=== PATIENT | female | born 1945 | race Caucasian/White ===

== ENCOUNTER 2019-12-06 13:38 | Emergency (ER) | payer MEDICARE, SELFPAY ==
--- NOTE | ~2019-12-06 | XR_ITS ---
EXAMINATION: XR chest 2V EXAM DATE: 12/06/2019 14:05 INDICATION: Cough and shortness of breath. TECHNIQUE: Frontal and lateral projections of the chest obtained and reviewed. There is no prior velia dy for comparison. FINDINGS: Chronic hyperinflation. No confluent consolidation, pneumothorax or pleural effusion suspe cted. Cardiomediastinal silhouette is normal. There is aortic arterial sclerosis. The bones are osteo penic. There are bony degenerative changes. Multiple thoracic chronic appearing compression fracture s. IMPRESSION: 1. Chronic hyperinflation. Reviewed, dictated and finalized at location B. ECTIONERY MAKER IMPRESSION: 1. Chronic hyperinflation.
--- NOTE | 2019-12-06 13:47 | ED.URI ---
HPI - URI/Sore Throat General Chief Complaint: Upper Respiratory Infection Stated Complaint: cough/sore throat/fever/SOB Time Seen by Provider: 12/06/19 14:10 Source: patient, family and RN notes reviewed Mode of arrival: ambulatory Limitations: no limitations History of Present Illness HPI Narrative: A 74 y/o female--who is former smoker and nondrinker-- c/o intermittent but worsening green, productive cough for the past couple months. She states that she has had associated SOB, nasal congestion, wheezes, back pain. She reports that she has had these symptoms for a couple months but that over the past week it has gotten more severe. She notes that she has been taking Aleve for her pain but denies it alleviating it. She also notes that she hasn't seen a doctor in a couple of years. She denies any calf pain/ edema, CP, sore throat, and all other medical complaints at this time. MD elicited complaint: cough (green productive) Onset (ago): month(s) (a couple but worse over the past week) Consistency: intermittent and progressively worsening Description of mucous: green Relieving factors: nothing Associated symptoms: nasal congestion, shortness of breath and other (wheezes, back pain, and RUE numbness) Treatments prior to arrival: other (Aleve) Related Data Allergies Allergy/AdvReac Type Severity Reaction Status Date / Time No Known Allergies Allergy Verified 12/06/19 13:58 Review of Systems Review of Systems: Narrative: General/Constitutional: No weight loss,fever Eyes: N0: Redness,discharge Ears/Nose/Throat: No: Epistaxis,ear discharge, sore throat. Reports nasal congestion. Respiratory: Denies: Hemoptysis. Reports green productive cough, SOB, and wheezes. Cardio: Denies CP or edema. Gastrointestinal: No Vomiting, Bleeding-rectal Skin: No Lumps, eruption Musculoskeletal: Reports back pain. Neurologic: No Focal Weakness,Sz. Reports RUE numbness. Hematologic: Denies: Petechiae/Purpura Psychiatric: No: Suicida ideationl All Other Systems: Reviewed and Negative [facility] Past Medical History Medical History (Updated 12/06/19 @ 14:48 by Zander Barr MD) Medical history unknown Surgical History Surgical History (Updated 12/06/19 @ 14:38 by Chuck Griffin) Surgical history unknown Social History Social History (Updated 12/06/19 @ 14:39 by Chuck Griffin) Smoking status: Never smoker Exam Narrative: Exam Narrative: General Appearance: Aged appearing, Well nourished EYE: PERRLA, Conjunctiva clear Ears: Auditory canal normal, TM normal Nose: Rhinorrhea, Mucousal erythema Mouth/Throat: MM moist, Uvula midline, Pharyngeal erythema Neck: Supple, No adenopathy Respiratory:Kyphotic, No distress,BS equal decreased at bases, increased AP rafael, CTA with rare wheeze] Cardiovascular: RRR, No JVD Musculoskeletal: Non tender, Normal strength Skin: Warm, Dry Neurological: A&O x3, CN II-XII intact Psychiatric: Normal mood, Normal affect Course Vital Signs Vital signs: Vital Signs Temperature 97.6 F 12/06/19 13:53 Pulse Rate 89 12/06/19 13:53 Respiratory Rate 22 H 12/06/19 13:53 Blood Pressure 222/88 H 12/06/19 13:53 Pulse Oximetry 97 12/06/19 13:53 Temperature 97.6 F 12/06/19 13:53 Pulse Rate 89 12/06/19 13:53 Respiratory Rate 22 H 12/06/19 13:53 Blood Pressure 160/100 H 12/06/19 14:25 Pulse Oximetry 97 12/06/19 13:53 MDM - URI/Sore Throat Lab Data Labs: Influenza A Screen Negative Reference Range: Negative Influenza B Screen Negative Reference Range: Negative Imaging Data Radiologist's impression: ITS Impressions Chest X-Ray 12/06/19 14:07 IMPRESSION: 1. Chronic hyperinflation. ECG Data EKG #1: ECG completion date: 12/06/19 ECG completion time: 14:17 EKG Interpretation: normal rate (88), sinus rhythm, RBBB and other (possible lt artrial enlargement and indeterminate axis) Di
[2019-12-06 13:53] VITALS: BP 222/88; PULSE 89; RESP 22; TEMP 36.4; O2SAT 97
--- NOTE | 2019-12-06 14:19 | ECG_ITS ---
Measurements Intervals [place] Rate: 88 P: 55 MT: 170 QRS: -14 QRSD: 126 T: 31 QT: 372 QTc: 452 Interpretive Statements SINUS RHYTHM POSSIBLE LEFT ATRIAL ENLARGEMENT RIGHT BUNDLE BRANCH BLOCK BASELINE ARTIFACT- I, II, III, AVR, AVL, AVF ABNORMAL ECG Electronically Signed On 12-06-2019 15:13:00 DELI WORKER by Deandre Campbell D.O.
[2019-12-06 14:25] VITALS: BP 160/100
== END 2019-12-06 14:57 | disposition home or self-care (01) ==
PROVIDERS: Emergency Provider Emergency Medicine
DX: J44.1 Chronic obstructive pulmonary disease with (acute) exacerbation (principal); R03.0 Elevated blood-pressure reading, without diagnosis of hypertension; J02.9 Acute pharyngitis, unspecified; R50.9 Fever, unspecified; R09.81 Nasal congestion
CPT/HCPCS: 71046; 87804; 93005; 99203; G0463

== ENCOUNTER 2020-03-28 00:23 | Outpatient (CLI) | payer MEDICARE, SELFPAY ==
[2020-03-28 17:43] LABS: SARS-CoV-2 RNA PCR Negative
== END 2020-03-28 00:24 | disposition home or self-care (01) ==
LOC: ANHCOVIDDT 00:23
PROVIDERS: PCP Family Medicine; Visit Provider Internal Medicine Gastroenterology
DX: Z01.818 Encounter for other preprocedural examination (principal); Z11.59 Encounter for screening for other viral diseases
CPT/HCPCS: 87635; C9803; U0003

== ENCOUNTER 2020-03-29 09:09 | Outpatient (CLI) | payer MEDICARE, SELFPAY ==
--- NOTE | ~2020-03-29 | US_ITS ---
EXAMINATION: US soft tissue head and neck DATE: 03/29/2020 09:46 INDICATION: Left neck lump. TECHNIQUE: Multiple grayscale and Doppler ultrasound images of the neck were obtained. COMPARISON: None FINDINGS: There are 2 mildly enlarged left internal jugular chain lymph nodes with the larger measuri ng 13 x 11 mm. IMPRESSION: 1. Mild left internal jugular chain lymphadenopathy, likely reactive. Reviewed, dictated and finalized at location A.
== END 2020-03-29 09:10 | disposition home or self-care (01) ==
PROVIDERS: PCP Family Medicine; Visit Provider Physician Assistant
DX: R22.0 Localized swelling, mass and lump, head (principal); R59.0 Localized enlarged lymph nodes
CPT/HCPCS: 76536

== ENCOUNTER 2020-03-30 01:02 | Day surgery (SDC) | payer MEDICARE, SELFPAY ==
[2020-03-23 12:52] VITALS: BMI 23.0
--- NOTE | 2020-03-30 | ECG_ITS ---
Measurements Intervals [place] Rate: 45 P: 58 [place]: 200 QRS: -14 QRSD: 134 T: 45 QT: 509 QTc: 443 Interpretive Statements SINUS RHYTHM WITH SECOND DEGREE AV BLOCK, TYPE I OR II (2:1 AV BLOCK) POSSIBLE LEFT ATRIAL ENLARGEMENT RIGHT BUNDLE BRANCH BLOCK BASELINE ARTIFACT- I, III, AVR, AVL, AVF ABNORMAL ECG Electronically Signed On 03-30-2020 12:46:01 CDT by Deandre Campbell D.O.
--- NOTE | 2020-03-30 07:46 | WPDANESEPPF ---
Anes - Initial Pre Proc Eval Procedure: Operation Date: 03/30/20 10:00 Proposed Procedures p Esophagogastroduodenoscopy - Alexis Hudson MD Date/Time: 03/30/20 07:46 Surgeon: Alexis Hudson MD Pre Op Diagnosis: Dysphagia Patient Data Age: 74 Gender: F Height: 1.47 m Weight: 50 kg Allergies Allergy/AdvReac Type Severity Reaction Status Date / Time No Known Allergies Allergy Verified 03/30/20 09:50 Home Medications Medication Instructions Recorded Confirmed Type albuterol sulfate [Ventolin HFA] 2 puff INHALATION QID PRN #8.5 gm 12/06/19 03/23/20 Rx cholecalciferol (vitamin D3) 1,250 50,000 unit PO WEEKLY #14 cap 01/04/20 03/23/20 Rx mcg (50,000 unit) capsule amlodipine 5 mg tablet 5 mg PO DAILY #30 tablet 01/30/20 03/23/20 Rx azelastine 137 mcg (0.1 %) nasal 1 spray NASAL Q12H #30 ml 03/20/20 03/23/20 Rx spray aerosol fluticasone propionate 50 1 spray NASAL Q12H #18.2 ml 03/20/20 03/23/20 Rx mcg/actuation nasal spray,suspension losartan 50 mg-hydrochlorothiazide 1 tablet PO DAILY #30 tablet 03/20/20 03/23/20 Rx 12.5 mg tablet rosuvastatin 5 mg tablet 5 mg PO DAILY #30 tablet 03/20/20 03/23/20 Rx fexofenadine [Children's Kacey 60 mg PO BID 03/23/20 03/23/20 History Allergy] Patient hx anesthesia problems: none Family hx anesthesia problems: none PMFSH Past Medical History Medical History (Updated 03/30/20 @ 07:47 by Prince Reeves MD) Asthma Benign essential HTN COPD (chronic obstructive pulmonary disease) Dysphagia Mass of left submandibular region Mixed hyperlipidemia Surgical History Surgical History (Updated 01/01/20 @ 20:15 by Heather Falk MD) Hx of hysterectomy Family History Family History (Updated 03/20/20 @ 11:55 by Adina Allan PA-C) Father Cerebrovascular accident Sibling Multiple sclerosis Heart disease Mother Hypertension Colon polyp Skin cancer Social History Social History (Updated 03/20/20 @ 10:35 by Isabella Porter) Social History: Smoking status: Never smoker Second hand tobacco smoke exposure: No Alcohol intake: never Substance use: never Substance use type: does not use Gender identity (if verbalized by the patient): Female Anes - Eval Final PreProcedure Day of Procedure 03/30/20 07:46 Patient weight: normal Heart: regular rate and rhythm Lungs: clear to auscultation and normal air movement Airway: Mallampati scale class II Neurological: alert and oriented Last oral intake: >/= 8 hours ASA classification: III Emergent: no Anesthetic plan: proceed Anesthesia type and monitoring: general GIVS Informed Consent: The patient's anesthetic plan and its attendant risks and benefits were discussed with the patient/family/POA. Questions were solicited and answers provided to the satisfaction of the patient/family/POA.
[2020-03-30 09:50] VITALS: BP 176/63; PULSE 52; RESP 12; TEMP 36.2; O2SAT 99; BMI 22.1
[2020-03-30] MEDS: LACTATED RINGERS 1,000 ML 150 ML IV CONT (10:07)
--- NOTE | 2020-03-30 10:53 | WPDGICN ---
Assessment and Plan Assessment and plan (1) Dysphagia: Code(s): R13.10 - Dysphagia, unspecified Status: Acute Assessment and Plan: Because of difficulty swallowing EGD will be performed. Because of her age consider elective colonoscopy at a later day for screening purposes. (2) COPD (chronic obstructive pulmonary disease): Code(s): J44.9 - Chronic obstructive pulmonary disease, unspecified Status: Acute GI Consult Note Consult date/time: 03/30/20 10:53 HPI: Vipul Abbasi is a 74 year old female Seen in evaluation at the request Dr. madelyn bland. Patient reports difficulty swallowing. Symptoms started in October of 2019 after a sore throat. Since that time she has difficulty swallowing with food catching throat. Sometimes she will cough after eating. She states specifically all types of food will hang up in this area causing her to regurgitate or bring the food back up. She denies any weight loss or bleeding. Family history Noncontributory. Review of Systems Review of Systems: All systems reviewed & are unremarkable except as noted in HPI and below PMFSH Past Medical History Medical History Asthma Benign essential HTN COPD (chronic obstructive pulmonary disease) Dysphagia Mass of left submandibular region Mixed hyperlipidemia Surgical History Surgical History Hx of hysterectomy Family History Family History Father Cerebrovascular accident Sibling Multiple sclerosis Heart disease Mother Hypertension Colon polyp Skin cancer Social History Social History Social History: Smoking status: Never smoker Second hand tobacco smoke exposure: No Alcohol intake: never Substance use: never Substance use type: does not use Gender identity (if verbalized by the patient): Female Meds Home Medications and Allergies Home Medications Medication Instructions Recorded Confirmed Type albuterol sulfate [Ventolin HFA] 2 puff INHALATION QID PRN #8.5 gm 12/06/19 03/30/20 Rx cholecalciferol (vitamin D3) 1,250 50,000 unit PO WEEKLY #14 cap 01/04/20 03/30/20 Rx mcg (50,000 unit) capsule amlodipine 5 mg tablet 5 mg PO DAILY #30 tablet 01/30/20 03/30/20 Rx azelastine 137 mcg (0.1 %) nasal 1 spray NASAL Q12H #30 ml 03/20/20 03/30/20 Rx spray aerosol fluticasone propionate 50 1 spray NASAL Q12H #18.2 ml 03/20/20 03/30/20 Rx mcg/actuation nasal spray,suspension losartan 50 mg-hydrochlorothiazide 1 tablet PO DAILY #30 tablet 03/20/20 03/30/20 Rx 12.5 mg tablet rosuvastatin 5 mg tablet 5 mg PO DAILY #30 tablet 03/20/20 03/30/20 Rx fexofenadine [Children's Kacey 60 mg PO BID 03/23/20 03/30/20 History Allergy] Allergies Allergy/AdvReac Type Severity Reaction Status Date / Time No Known Allergies Allergy Verified 03/30/20 09:50 Vital Signs Vital Signs - 24 hr 03/30/20 09:50 Temperature 36.2 C L Pulse Rate 52 L Respiratory Rate 12 Blood Pressure 176/63 H Pulse Oximetry 99 Exam Narrative: Exam Narrative: Physical exam reveals patient to be alert. Vital signs stable. HEENT exam unremarkable. Lungs are clear to auscultation and percussion. Heart is without murmur or extra sounds. Abdominal exam bowel sounds are present soft nontender with no hepatosplenomegaly. Rectal exam is deferred today.
[2020-03-30 11:21] VITALS: BP 186/70; PULSE 48; RESP 16; O2SAT 95
[2020-03-30 11:31] VITALS: BP 199/61; PULSE 48; RESP 16; O2SAT 96
[2020-03-30 11:41] VITALS: BP 186/70; PULSE 47; RESP 16; O2SAT 96
[2020-03-30 11:51] VITALS: BP 180/73; PULSE 48; RESP 16; O2SAT 95
--- NOTE | 2020-03-30 12:29 | SUR.PHASEII ---
1121 PT RECIEVED INTO RECOVERY ROOM 9 WITH ELECTRONICS MANUFACTURER, PATIENT RHYTHM NOTED TO BE BRADYCARDIC AND A 2:1 2ND DEGREE TYPE 2 HEART BLOCK, PT DENTIES ANY CHEST DISCOMFORT OR SOB. DR. BARRAGAN ANESTHESIA NOTIFIED.
--- NOTE | 2020-03-30 12:46 | SUR.PHASEII ---
1143 EKG ORDERED AND BEING DONE. 1150 EKG CONFIRMS 2ND DEGREE TYPE 2 HEART BLOCK, VS STABLE AND PT DENIES ANY DISCOMFORT. DR. MARCANO CALLED PER JOHANNY AGUDELO RN, DISCHARGE PT WITH INSTRUCTIONS AND TO FOLLOW UP WITH DR. MARCANO IN OFFICE ON THURSDAY. 5 PT DENIES ANY DISCOMFORT, DISCHARGED WITH DAUGHTER PANKAJ INSTRUCTIONS GONE OVER AND INSTRUCTIED TO GO TO ER IF ANY DISCOMFORT OR SOB DEVELOPS.
== END 2020-03-30 12:30 | disposition home or self-care (01) ==
PROVIDERS: PCP Family Medicine; Visit Provider Internal Medicine Gastroenterology
PROC: 0DJ08ZZ Inspection of Upper Intestinal Tract, Via Natural or Artificial Opening Endoscopic (ICD-10-PCS; CPT 43235; principal; 2020-03-30 10:00)
DX: C15.5 Malignant neoplasm of lower third of esophagus (principal); J44.9 Chronic obstructive pulmonary disease, unspecified; I10 Essential (primary) hypertension; E78.2 Mixed hyperlipidemia
CPT/HCPCS: 43239; 88305; J2704; J7120

== ENCOUNTER 2020-04-02 16:07 | Outpatient (CLI) | payer MEDICARE, SELFPAY ==
--- NOTE | ~2020-04-02 | CT_ITS ---
EXAMINATION: CT soft tissue neck w con, CT chest w con EXAM DATE: 04/02/2020 17:17 (accession [id number]), 04/02/2020 17:16 (accession [id number]) INDICATION: Throat mass, multiple neck masses. TECHNIQUE: Spiral CT of the neck and chest was performed following intravenous injection of 75 mL Omn ipaque 350. Axial, coronal and sagittal images of the neck were reviewed. Axial, coronal and sagitt al images of the chest were reviewed. Coronal maximum intensity pixel images of chest reviewed. The dose-length product (DLP) for this examination was 413.92 (accession [id number]), 0.00 (accessio n [id number]) mGy-cm. The exposure was tailored according to patient size (auto mA exposure cont rol), and iterative reconstruction (ASIR) was used as additional dose reduction technique. There is no prior study for comparison. FINDINGS: NECK: The thyroid gland is unremarkable. The submandibular and parotid glands are symmetric. Ther e is massive enlargement of the tonsils bilaterally, with the left measuring about 3 x 4 cm and the r ight measuring about 2 x 3 cm. This is causing narrowing of the oropharynx. On the left there is appr oximately 180 degrees encasement of the carotid bulb, indicating possible patient of left carotid she ath. There are 3 pathological left internal jugular chain lymph nodes, best identified on the alcocer l images 40 and 48. These have been marked for your review. Parapharyngeal and pre-glottic fat planes are preserved. There is moderate bilateral carotid bulb arteriosclerosis, not suspected to be more t andersen about 30% carotid stenosis bilaterally. The orbits are unremarkable. Visualized sinuses and mas toid air cells are well aerated. There is cervical spondylosis. CHEST: There is moderate centrilobular emphysema. There is bibasilar subsegmental atelectasis and rig ht middle lobe medial segmental atelectasis. There are no pleural or pericardial effusions. Trache obronchial tree is patent. There is no mediastinal, hilar or axillary lymphadenopathy. There is n o pneumothorax. There is mild cardiomegaly. No pulmonary emboli. There is mild coronary arterial c alcification, arterial sclerosis. There is small sliding gastroesophageal hiatal hernia. There are a few low-density regions within the spleen, largest measuring 1.2 and 1.8 cm. Majority of splenic lesi ons are benign. There is thoracic spondylosis without osteoblastic or osteolytic lesions identified. IMPRESSION: 1. Massive bilateral tonsillar enlargement. Left internal jugular chain lymphadenopathy. Could be ly mphoma, oropharyngeal squamous cell cancer with metastatic disease, or other malignancy. 2. At least 2 splenic hypodensities may be benign, but lymphoma can cause splenic metastases. 3. Segmental right middle lobe, subsegmental bibasilar atelectasis. 4. Moderate emphysema. 5. Cardiomegaly. 6. Small hiatal hernia. Reviewed, dictated and finalized at location G. IMPRESSION: 1. Massive bilateral tonsillar enlargement. Left internal jugular chain lympha denopathy. Could be lymphoma, oropharyngeal squamous cell cancer with metastati c disease, or other malignancy. 2. At least 2 splenic hypodensities may be benign, but lymphoma can cause sple [place] metastases. 3. Segmental right middle lobe, subsegmental bibasilar atelectasis. 4. Moderate emphysema. 5. Cardiomegaly. 6. Small hiatal hernia.
[2020-04-02 16:57] LABS: Estimated Glomerular Filt Rate > 60
== END 2020-04-02 16:08 | disposition home or self-care (01) ==
PROVIDERS: PCP Family Medicine; Visit Provider Internal Medicine Gastroenterology
DX: J39.2 Other diseases of pharynx (principal); R59.0 Localized enlarged lymph nodes; J35.1 Hypertrophy of tonsils; R91.8 Other nonspecific abnormal finding of lung field; J43.9 Emphysema, unspecified; I51.7 Cardiomegaly; K44.9 Diaphragmatic hernia without obstruction or gangrene
CPT/HCPCS: 36415; 70491; 71260; Q9967

== ENCOUNTER 2020-04-13 14:33 | Outpatient (CLI) | payer MEDICARE, SELFPAY ==
[2020-04-13 15:02] LABS: Basophils Percent Auto 0.1 % (0.2-1.2); Hemoglobin 12.7 g/dL (12.0-15.0); Immature Granulocyte Absolute 0.08 K/mm3 (0.00-0.031); Immature Granulocyte Percent A 0.6 % (0-0.5); Lymphocytes Absolute Auto 0.74 K/mm3 (0.9-3.2); Lymphocytes Percent Auto 5.5 % (18.3-44.2); Mean Corpuscular HGB Conc 33.4 g/dl (32-36); Mean Corpuscular Hemoglobin 27.9 pg (26-34); Mean Corpuscular Volume 83.5 fl (80-100); Mean Platelet Volume 9.7 fl (7.4-10.4); Monocytes Absolute Auto 0.3 K/mm3 (0.1-0.6); Monocytes Percent Auto 2.1 % (2.6-8.5); Neutrophils Absolute Auto 12.3 K/mm3 (1.3-6.7); Neutrophils Percent Auto 91.7 % (45.5-73.1); Platelet Count Result 291 k/mm3 (150-375); Red Blood Count 4.55 M/mm3 (4.2-5.4); Red Cell Distribution Width 14.1 % (11.5-14.5); White Blood Count 13.4 K/mm3 (4.5-10.0)
[2020-04-13 15:14] LABS: Prothrombin Time 12.7 Seconds (11.1-14.7)
[2020-04-13 15:18] LABS: Alanine Aminotransferase 15 U/L (4-35); Albumin Level 4.1 g/dL (3.5-5.1); Alkaline Phosphatase 53 U/L (38-126); Aspartate Amino Transferase 16 U/L (14-36); Bilirubin,Total 0.8 mg/dL (0.2-1.3); Blood Urea Nitrogen 10 mg/dL (7-17); Calcium 9.3 mg/dL (8.4-10.2); Carbon Dioxide 27 mmol/L (22-30); Chloride 93 mmol/L (98-107); Estimated Glomerular Filt Rate > 60; Glucose 145 mg/dL (65-105); Potassium 4.3 mmol/L (3.4-5.0); Sodium 128 mmol/L (137-145)
== END 2020-04-13 14:34 | disposition home or self-care (01) ==
PROVIDERS: PCP Family Medicine; Visit Provider Internal Medicine Cardiovascular Disease
DX: Z01.812 Encounter for preprocedural laboratory examination (principal); I44.1 Atrioventricular block, second degree; R00.1 Bradycardia, unspecified
CPT/HCPCS: 36415; 80053; 85025; 85610

== ENCOUNTER 2020-04-16 00:13 | Outpatient (CLI) | payer MEDICARE, SELFPAY ==
[2020-04-16 17:13] LABS: SARS-CoV-2 RNA PCR Negative
== END 2020-04-16 00:14 | disposition home or self-care (01) ==
LOC: ANHCOVIDDT 00:14
PROVIDERS: Internal Medicine Cardiovascular Disease; PCP Family Medicine; Visit Provider Surgery
DX: Z01.812 Encounter for preprocedural laboratory examination (principal); Z11.59 Encounter for screening for other viral diseases
CPT/HCPCS: 87635; C9803; U0003

== ENCOUNTER 2020-04-17 10:57 | Outpatient (CLI) | payer MEDICARE, SELFPAY ==
--- NOTE | ~2020-04-17 | PE_ITS ---
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 8.82 mCi of 18-fluorodeoxyglucose (18-FDG) was administ ered i.v. Low dose computed tomography (CT) images were acquired from the base of the brain to the pr oximal thighs for attenuation correction and anatomic localization. Positron emission tomography (PET ) images were acquired in the same distribution beginning 83 minutes after injection. The dose-length product (DLP) was 290.38 mGy-cm. COMPARISON: CT, 04/02/2020 FINDINGS: Head/neck: There is persistent marked bilateral tonsillar enlargement. Size of the tonsils appears un changed although direct comparison is limited by the absence of intravenous contrast. The left tonsil measures up to 3.9 cm in the right up to 2.9 cm. Both demonstrate abnormal FDG uptake with SUV max o f 16.7. Left internal jugular chain lymphadenopathy is also unchanged with abnormal FDG uptake and UMAÑA V max of 9.9. Chest: There is moderate emphysema. Mild dependent atelectasis is noted. There is also mild atelectas is of the right middle lobe. No pleural effusion or pneumothorax is identified. There is mild eccentr ic wall thickening of the distal esophagus with mild associated FDG uptake and SUV max of 2.4. No pat hologically enlarged thoracic lymph nodes are identified. The heart size is normal. Calcified coronar y artery atherosclerosis is present. Abdomen/pelvis/proximal thighs: Physiologic FDG activity is present in the bowel and urinary tract. N o abnormal splenic uptake is identified in the areas questioned on the comparison CT. The liver, panc reas, and adrenals are normal. A stone is present in the nondistended gallbladder. There is calcified atherosclerosis of the aorta and many of the other arteries. No pathologically enlarged abdominal or pelvic lymph nodes are identified. There is no free intraperitoneal gas or evidence of bowel obstruc tion. Musculoskeletal: There are hemangiomas involving multiple thoracic and lumbar vertebral bodies. There are unchanged compression fractures at multiple levels in the thoracic spine. IMPRESSION: 1. Marked enlargement of the tonsils and left internal jugular chain lymphadenopathy with associated abnormal FDG uptake, consistent with malignancy, primary versus metastatic. 2. Mild eccentric wall thickening of the distal esophagus with mild associated FDG uptake, possibly r eflecting known malignancy. Reviewed, dictated and finalized at location A. IMPRESSION: 1. Marked enlargement of the tonsils and left internal jugular chain lymphadeno kyaw with associated abnormal FDG uptake, consistent with malignancy, primary versus metastatic. 2. Mild eccentric wall thickening of the distal esophagus with mild associated FDG uptake, possibly reflecting known malignancy.
[2020-04-17 11:22] LABS: Glucose Point of Care 118 (65-105)
== END 2020-04-17 10:58 | disposition home or self-care (01) ==
PROVIDERS: PCP Family Medicine; Visit Provider Internal Medicine Hematology & Oncology
DX: C15.5 Malignant neoplasm of lower third of esophagus (principal); R59.0 Localized enlarged lymph nodes
CPT/HCPCS: 78815; A9552

== ENCOUNTER 2020-04-18 05:29 | Day surgery (SDC) | payer MEDICARE, SELFPAY ==
[2020-04-17 19:51] VITALS: BMI 25.4
[2020-04-18] VITALS (12 sets, daily range): BP systolic 122–178; BP diastolic 62–80; PULSE 38–85; RESP 12–21; TEMP 36.1–36.8; O2SAT 94–100
--- NOTE | ~2020-04-18 | XR_ITS ---
EXAMINATION: XR chest port-a-cath/central EXAM DATE: 04/19/2020 10:39 INDICATION: Gavin catheter insertion. TECHNIQUE: Portable AP frontal chest x-ray was obtained. Comparison is made to prior examination from earlier same date. FINDINGS: There is a dual lead pacemaker/AICD seen with leads projecting over the expected locations of the right atrial appendage and right ventricle. Interval insertion of a right-sided portacatheter, appears to be subclavian approach. No evidence of postprocedure pneumothorax. Small amount of right lower lobe subsegmental atelectasis. Cardiac silhouette is stable in size compared to prior exam. The re is aortic arteriosclerosis. There are no pleural effusions. There are bony degenerative changes. IMPRESSION: 1. No evidence postprocedure pneumothorax. 2. Right basilar subsegmental atelectasis. Reviewed, dictated and finalized at location B.
--- NOTE | ~2020-04-18 | XR_ITS ---
EXAMINATION: XR chest 1V portable INDICATION: Pacemaker insertion TECHNIQUE: Portable AP chest at 1235 hours COMPARISON: 12/06/2019 FINDINGS: A dual-lead pacemaker of the left chest wall has been inserted which ends with its leads in expected positions. No pneumothorax is identified. There is mild atelectasis of the lung bases. Card iomegaly is noted. No pleural effusion is identified IMPRESSION: 1. Dual lead pacemaker insertion of the left chest wall without pneumothorax. Reviewed, dictated and finalized at location A.
--- NOTE | ~2020-04-18 | XR_ITS ---
EXAMINATION: XR chest 2V EXAM DATE: 04/19/2020 08:15 INDICATION: Postoperative day 1, pacemaker insertion. TECHNIQUE: Frontal and lateral projections of the chest obtained and reviewed. Comparison is made to prior examination from 04/18/2020. FINDINGS: There is a dual lead pacemaker/AICD seen with leads projecting over the expected locations of the right atrial appendage and right ventricle. Mild basilar atelectasis but no confluent consoli dation, pneumothorax or pleural effusion suspected. Cardiac silhouette is enlarged but stable in size compared to prior exam. The bones are osteopenic. There are bony degenerative changes. IMPRESSION: 1. No evidence of pneumothorax. 2. Mild basilar atelectasis. 3. Mild cardiomegaly. Reviewed, dictated and finalized at location B.
--- NOTE | ~2020-04-18 | XR_ITS ---
EXAMINATION: XR fl guide central line place DATE: 04/19/2020 10:24 INDICATION: Port catheter insertion TECHNIQUE: Single fluoroscopic spot image of the right chest was obtained during procedure performed by Dr. Ellis. Radiologist was not present for the imaging or procedure. The amount of fluoroscopy rand e used during this procedure was 1.3 minutes. COMPARISON: Chest radiograph dated 04/19/2020 FINDINGS: Interval placement of a right subclavian central venous port which extends into the superior vena cav a but with distal tip collimated beyond the margin of the [id number]. Partially seen are a pair of cardiac pacemaker leads. Visualized portion of the right lung is clear. IMPRESSION: 1. Fluoroscopy utilized during right subclavian central venous port catheter placement. Reviewed, dictated and finalized at location A. IMPRESSION: 1. Fluoroscopy utilized during right subclavian central venous port catheter pl acement.
--- NOTE | 2020-04-18 08:30 | ECG_ITS ---
Measurements Intervals [place] Rate: 40 P: 49 MD: 158 QRS: -3 QRSD: 124 T: 19 QT: 490 QTc: 400 Interpretive Statements SINUS RHYTHM WITH SECOND DEGREE AV BLOCK, TYPE I OR II (2:1 AV BLOCK) POSSIBLE LEFT ATRIAL ENLARGEMENT RIGHT BUNDLE BRANCH BLOCK BASELINE ARTIFACT- I, II, III, AVR, AVL, AVF ABNORMAL ECG Electronically Signed On 04-18-2020 9:17:30 CDT by Deandre Campbell D.O.
[2020-04-18 09:06] LABS: Blood Urea Nitrogen 9 mg/dL (7-17); Calcium 9.7 mg/dL (8.4-10.2); Carbon Dioxide 28 mmol/L (22-30); Chloride 92 mmol/L (98-107); Estimated Glomerular Filt Rate > 60; Glucose 101 mg/dL (65-105); Potassium 3.6 mmol/L (3.4-5.0); Sodium 129 mmol/L (137-145)
[2020-04-18 09:10] LABS: INR 0.9; Prothrombin Time 12.2 Seconds (11.1-14.7)
[2020-04-18 09:19] LABS: Basophils Percent Auto 0.3 % (0.2-1.2); Eosinophils Absolute Auto 0.1 K/mm3 (0-0.3); Eosinophils Percent Auto 0.8 % (0-4.4); Hematocrit 42.8 % (37.0-47.0); Hemoglobin 14.3 g/dL (12.0-15.0); Immature Granulocyte Absolute 0.08 K/mm3 (0.00-0.031); Immature Granulocyte Percent A 0.6 % (0-0.5); Lymphocytes Absolute Auto 2.12 K/mm3 (0.9-3.2); Lymphocytes Percent Auto 15.1 % (18.3-44.2); Mean Corpuscular HGB Conc 33.4 g/dl (32-36); Mean Corpuscular Hemoglobin 28.4 pg (26-34); Mean Corpuscular Volume 84.9 fl (80-100); Mean Platelet Volume 9.8 fl (7.4-10.4); Monocytes Percent Auto 7.1 % (2.6-8.5); Neutrophils Absolute Auto 10.7 K/mm3 (1.3-6.7); Neutrophils Percent Auto 76.1 % (45.5-73.1); Platelet Count Result 308 k/mm3 (150-375); Red Blood Count 5.04 M/mm3 (4.2-5.4); Red Cell Distribution Width 14.1 % (11.5-14.5)
--- NOTE | 2020-04-18 09:49 | PM.IMHP ---
H&P: HPI History of Present Illness Chief complaint: pacemaker incertion Narrative: Vipul Abbasi is a 74 year old female recently seen by Dr. Noel in our office for symptomatic second-degree AV blockType 2. She is here for permanent dual-chamber pacemaker implant. Normal LV function by echo. The patient has been experiencing decreased exertional capacity recently was found to have bradycardia with fairly persistent two-to-one AV block. She also was recently found to have esophageal cancer, and has an enlarged lymph node of the left neck. She has been seen by Dr. Elkins and will be seen by radiation oncology. We have communicated with that office regarding pacer implant and radiation bonner and he has anticipating radiation therapy to the midline, low to mid chest area. Possibly neck as well. However we can place the pacemaker on either side preferably more laterally than medially. She will be getting a Port-A-Cath tomorrow. The patient has a history of COPD, and hypertension. She is on chronic prednisone, she says for the last few weeks, which is weaning down, although I see his she was also on prednisone in November. Right-handed, no clavicular fracture, no fevers, has been NPO. Review of Systems Constitutional: Constitutional: Reports lethargy ENT: Reports dysphagia and Denies epistaxis Cardiovascular: Cardiovascular: Denies chest pain Respiratory: Respiratory: Reports chest congestion, Reports cough, Denies hemoptysis and Reports dyspnea on exertion Gastrointestinal: Gastrointestinal: Reports as per HPI (Dysphagia) and Denies hematochezia Genitourinary: Genitourinary: Denies hematuria Musculoskeletal: Musculoskeletal: Denies back pain Integumentary/Breasts: Skin/Breast: Denies rash Neurologic: Denies confusion Psychiatric: Psychiatric: Denies confusion COUNT INCLUDES THE [facility] Past Medical History Medical History (Updated 04/18/20 @ 09:57 by Marilia Lacey MD) Asthma Benign essential HTN COPD (chronic obstructive pulmonary disease) Dysphagia Esophageal cancer Mass of left submandibular region Mixed hyperlipidemia Second degree AV block Surgical History Surgical History Hx of hysterectomy Social History Social History (Updated 04/18/20 @ 09:55 by Marilia Lacey MD) Social History: , lives with daughter in [place]. Smoking packs per day: 1 Smoking cigarettes per day: 20.0 Years smoked: 30 Smoking pack-years: 30.00 Smoking status: Former smoker Tobacco type: cigarettes Second hand tobacco smoke exposure: No Alcohol intake: never Substance use: never Substance use type: does not use Gender identity (if verbalized by the patient): Female Spiritual care concerns: No Meds Home Medications and Allergies Home Medications Medication Instructions Recorded Confirmed Type albuterol sulfate [Ventolin HFA] 2 puff INHALATION QID PRN #8.5 gm 12/06/19 04/18/20 Rx cholecalciferol (vitamin D3) 1,250 50,000 unit PO WEEKLY #14 cap 01/04/20 04/18/20 Rx mcg (50,000 unit) capsule azelastine 137 mcg (0.1 %) nasal 1 spray NASAL Q12H #30 ml 03/20/20 04/18/20 Rx spray aerosol fluticasone propionate 50 1 spray NASAL Q12H #18.2 ml 03/20/20 04/18/20 Rx mcg/actuation nasal spray,suspension losartan 50 mg-hydrochlorothiazide 1 tablet PO DAILY #30 tablet 03/20/20 04/18/20 Rx 12.5 mg tablet rosuvastatin 5 mg tablet 5 mg PO DAILY #30 tablet 03/20/20 04/18/20 Rx fexofenadine [Children's Kacey 60 mg PO BID 03/23/20 04/18/20 History Allergy] calcitonin (salmon) 200 1 spray INTRANASAL (ALT) DAILY 04/02/20 04/18/20 Rx unit/actuation nasal spray #3.7 ml hydralazine 10 mg tablet 10 mg PO TID #90 tablet 04/02/20 04/18/20 Rx prednisone 10 mg tablet See Rx Instructions PO DAILY 20 04/02/20 04/18/20 Rx Days #50 tablet Allergies Allergy/AdvReac Type Severity Reaction Status Date / Time No Known Allergies Allergy Verified
--- NOTE | 2020-04-18 09:57 | WPDMODSED ---
Moderate Sedation Note-Pt Data Patient Data Diagnosis: Symptomatic second-degree AV block Present Complaint: Exertional fatigue, ROMERO Procedure to be performed/Plan: Conscious sedation Venogram Implantation of a permanent dual-chamber pacemaker Allergies Allergy/AdvReac Type Severity Reaction Status Date / Time No Known Allergies Allergy Verified 04/05/20 14:49 Home Medications Medication Instructions Recorded Confirmed Type albuterol sulfate [Ventolin HFA] 2 puff INHALATION QID PRN #8.5 gm 12/06/19 04/18/20 Rx cholecalciferol (vitamin D3) 1,250 50,000 unit PO WEEKLY #14 cap 01/04/20 04/18/20 Rx mcg (50,000 unit) capsule azelastine 137 mcg (0.1 %) nasal 1 spray NASAL Q12H #30 ml 03/20/20 04/18/20 Rx spray aerosol fluticasone propionate 50 1 spray NASAL Q12H #18.2 ml 03/20/20 04/18/20 Rx mcg/actuation nasal spray,suspension losartan 50 mg-hydrochlorothiazide 1 tablet PO DAILY #30 tablet 03/20/20 04/18/20 Rx 12.5 mg tablet rosuvastatin 5 mg tablet 5 mg PO DAILY #30 tablet 03/20/20 04/18/20 Rx fexofenadine [Children's Kacey 60 mg PO BID 03/23/20 04/18/20 History Allergy] calcitonin (salmon) 200 1 spray INTRANASAL (ALT) DAILY 04/02/20 04/18/20 Rx unit/actuation nasal spray #3.7 ml hydralazine 10 mg tablet 10 mg PO TID #90 tablet 04/02/20 04/18/20 Rx prednisone 10 mg tablet See Rx Instructions PO DAILY 20 04/02/20 04/18/20 Rx Days #50 tablet Current Medications: Active Medications Fentanyl Citrate (Sublimaze) 25 mcg IV PUSH Q2M PRN PRN Reason: Pain Lactated Ringer's (Lr - Lactated Ringers Iv) 1,000 mls @ 30 mls/hr IV CONT .Q24H PATRICIA Lactated Ringer's (Lr - Lactated Ringers Iv) 1,000 mls @ 30 mls/hr IV CONT .Q24H PATRICIA Ondansetron HCl (Zofran Inj) 4 mg IV PUSH ONCE PRN PRN Reason: Nausea Sedation/Anesthesia: No previous sedation/anesthesia problems (including family history). [facility] Past Medical History Medical History (Updated 04/18/20 @ 09:57 by Marilia Lacey MD) Asthma Benign essential HTN COPD (chronic obstructive pulmonary disease) Dysphagia Esophageal cancer Mass of left submandibular region Mixed hyperlipidemia Second degree AV block Surgical History Surgical History Hx of hysterectomy Social History Social History (Updated 04/18/20 @ 09:55 by Marilia Lacey MD) Social History: , lives with daughter in [place]. Smoking packs per day: 1 Smoking cigarettes per day: 20.0 Years smoked: 30 Smoking pack-years: 30.00 Smoking status: Former smoker Tobacco type: cigarettes Second hand tobacco smoke exposure: No Alcohol intake: never Substance use: never Substance use type: does not use Gender identity (if verbalized by the patient): Female Spiritual care concerns: No Mod Sed Physical Exam Physical Exam Pre Procedural Exam: Normal: Appearance, Eyes, Ears, Nose, Airway, Lungs, Heart Size, Heart Rhythm, Neuro Exam, Abdomen, Liver, Extremities and Skin and Variation: Neck (Mass on left neck), Throat (Missing some teeth) and Heart Rate (Bradycardic) Hours since solid foods: 12 Hours since liquid intake: 12 Internal Medicine - PN: Obj Da Vital Signs Vital Signs: Vital Signs - 24 hr 04/18/20 08:45 Temperature 97 F L Pulse Rate 38 L Respiratory Rate 14 Blood Pressure 178/77 H Pulse Oximetry 98 Meds/Results Medications: Active Medications Generic Name Dose Route Start Last Admin Trade Name Freq PRN Reason Stop Dose Admin Fentanyl Citrate 25 mcg 04/18/20 09:02 Sublimaze IV PUSH Q2M PRN Pain Lactated Ringer's 1,000 mls @ 30 mls/hr 04/18/20 09:05 Lr - Lactated Ringers Iv IV CONT .Q24H PATRICIA Lactated Ringer's 1,000 mls @ 30 mls/hr 04/18/20 09:05 Lr - Lactated Ringers Iv IV CONT .Q24H PATRICIA Ondansetron HCl 4 mg 04/18/20 09:02 Zofran Inj IV PUSH ONCE PRN Nausea Labs CBC & Chem 7: 04/18/20 08:49
--- NOTE | 2020-04-18 11:46 | ECG_ITS ---
Measurements Intervals [place] Rate: 71 P: 28 [place]: 172 QRS: -74 QRSD: 150 T: 79 QT: 444 QTc: 483 Interpretive Statements ATRIAL SENSE- ELECTRONIC VENTRICULAR PACEMAKER BASELINE ARTIFACT- I, II, III, AVR, AVL NO FURTHER INTERPRETATION IS POSSIBLE ATYPICAL ECG Electronically Signed On 04-18-2020 12:46:19 CDT by Deandre Campbell D.O.
--- NOTE | 2020-04-18 11:56 | PM.PROC ---
Procedure Note - Detailed Date of procedure: 04/18/20 Pre-op diagnosis: pacemaker incertion second-degree AV block type 2, symptomatic Post-op diagnosis: same Procedure performed: conscious sedation venogram implantation of a permanent dual chamber transvenous pacemaker Description of procedure: PROCEDURE PERFORMED: Conscious sedation Venogram Placement of a permanent dual-chamber pacemaker SITE: Left prepectoral area MEDICATIONS GIVEN IN APPRENTICESHIP REPRESENTATIVE: Ancef 1 gram IV piggyback CONSCIOUS SEDATION: Assessment: The patient has no history of anesthesia problems. The patient's oropharynx is clear. The patient was deemed to be a good candidate for conscious sedation. The patient had continuous hemodynamic monitoring during the procedure. Start time:10:30 a.m. Completion time: 11:27 a.m. Total conscious sedation time: 57 minutes Medications: Versed 3 mg and fentanyl 75 mcg IV push Trained observer: Maynor Umanzor RN Outcome: The patient tolerated the procedure well with no complications. PROCEDURE: After informed consent , the patient was brought to the labor relations officer and the left prepectoral area was prepped and draped in usual fashion . The patient received preop antibiotic and conscious sedation . The left prepectoral area was anesthetized with lidocaine . The left subclavian vein was easily accessed with the micropuncture technique, and a J-tip guide wire was passed into the superior vena cava under fluoroscopic guidance . The needle was withdrawn . A 2nd wire was introduced with the retained wire technique, in an identical fashion. Next a skin incision was made and carried down to the prepectoral fascia. Hemostasis was obtained using electrocautery . The pacer pocket was formed. The wires were drawn into the pacing pocket. A 7 Kazakh Kazakh safety sheath was passed over the lateral wire, the wire withdrawn, and the right ventricular lead was passed into the inferior vena cava under fluoroscopic guidance . The lead was then prolapsed through the tricuspid valve and advanced into the right ventricule. An attempt was made to place this on the septum, without easy success, so then I placed in the apex. When suitable sensing and pacing thresholds were obtained, it was screwed into place. No extra cardiac stimulation was obtained using 10 volts. The sheath was withdrawn. Next, another 7 Kazakh safety sheath was passed over the more medial wire, the wire withdrawn, and the right atrial lead was passed into the inferior vena cava under fluoroscopic guidance. Right atrial lead was then pulled back to the level of the right atrium and manipulated into the right atrial appendage . When suitable sensing and pacing thresholds were obtained , it was screwed into place . No extra cardiac stimulation was obtained using 10 volts. The sheath was withdrawn. Both leads were secured to the prepectoral fascia using 2-0 silk over their respective sleeves. The pocket was cleansed with antibiotic containing solution . The pulse generator was introduced into the operative field, and both leads were secured into the generator . A gentle tug showed the leads were securely fastened. The device was introduced into the pocket. A stay stitch was applied using 2 0 silk suture. The subcutaneous tissues were closed in a double layer fashion with interrupted sutures, using 2-0 Vicryl suture , and the skin was closed in a continuous fashion using 4-0 Vicryl suture in a continuous fashion. The area was cleansed, and an Aquacel dressing was applied . The patient tolerated the procedure well with no complications. PACEMAKER INFORMATION: Pulse generator: Biotronik Edora 8 DR-T, Serial # [id number] Right atrial lead: Biotronik Solia S45, serial # [id number] Right ventricular lead: Biotronik Solia S 53, serial number [id number] MEASURED DATA: Right atrial: P-wave sensing 4.6 mV, impedance 507 Ohms, threshold 0.9 volts. Right ventricular lead: R-wav
--- NOTE | 2020-04-18 11:59 | PM.OP ---
Procedure Note - Brief Procedure Note - Brief Date of procedure: 04/18/20 Pre-op diagnosis: pacemaker incertion symptomatic second-degree AV block Post-op diagnosis: same Procedure performed: conscious sedation venogram implantation of a permanent dual-chamber pacemaker Description of procedure: Patent left subclavian vein Uneventful placement of a dual-chamber Biotronik pacemaker Anesthesia: local ( with conscious sedation) Surgeon: Marilia Lacey MD Estimated blood loss (mL): 10 Drains: No Packing: No Pathology: none sent Complications: No immediate complications Condition: stable Disposition: no change
--- NOTE | 2020-04-18 13:00 | ADMGEN ---
This patient, Vipul Abbasi, was admitted to [facility]. Patient/family oriented to hospital policies and general routines including ID bracelet, bed and alarms, visiting hours, pain management, procedures, bathroom and other care routines, personal items, smoking policy, room service/diet, and visiting hours. Valuables list has been completed. Information on how to activate the Rapid Response Team has been discussed. Patient/Family are encouraged to report perceived risks to care and to ask questions if they do not understand what they are told or what they should do.
--- NOTE | 2020-04-18 18:56 | SUR.PHASEII ---
1240-ending Phase II recovery and into PCS. No distress noted. Will continue to monitor.
[2020-04-18] MEDS: FLUTICASONE PROPIONATE 0.05% NA SPR 16 GM BTL (*BKC) 1 SPRAY NASAL (20:15)
[2020-04-18] MEDS: AZELASTINE HCL NASAL 0.1% 137 MCG/SPR 30 ML BTL 1 SPRAY NASAL (20:15)
[2020-04-18] MEDS: hydrALAZINE 10 MG TABLET PO (20:35)
[2020-04-18] MEDS: ROSUVASTATIN 5 MG TABLET PO (20:35)
[2020-04-19] VITALS (9 sets, daily range): BP systolic 113–189; BP diastolic 63–106; PULSE 79–106; RESP 14–19; TEMP 36.1–36.8; O2SAT 93–99
[2020-04-19] MEDS: SODIUM CHLORIDE 0.9% IV 1,000 ML 50 ML IV CONT (07:00)
[2020-04-19] MEDS: hydrALAZINE 10 MG TABLET PO ×2 (07:55→12:18)
--- NOTE | 2020-04-19 08:13 | PC.NURSE ---
DOWN VIA WC FOR 2 VIEW CXR S/P PPM PLACEMENT 04/18/20.
--- NOTE | 2020-04-19 08:24 | PC.NURSE ---
HAS RETURNED TO ROOM STRIP CLEANER 4 POST 2 VIEW CXR. NEW PPM BEING INTERROGATED AT THIS TIME BEDSIDE.
[2020-04-19] MEDS: IBUPROFEN IV 800 MG/200 ML 800 MG/200 ML BAG 400 MG IVPB (08:50)
--- NOTE | 2020-04-19 09:04 | WPDANESEPPF ---
Anes - Initial Pre Proc Eval Procedure: Operation Date: 04/18/20 10:00 Proposed Procedures p Insertion Dual Chamber Pacemaker - Marilia Lacey MD Operation Date: 04/19/20 10:00 Proposed Procedures p Insertion Port A Cath - Cherrie Ellis MD Date/Time: 04/19/20 09:04 Surgeon: Marilia Lacey MD Pre Op Diagnosis: pacemaker incertion Patient Data Age: 74 Gender: F Height: 1.37 m Weight: 47.9 kg Last Vital Signs Temp 36.6 C 04/19/20 04:00 Pulse 80 04/19/20 08:00 Resp 14 04/19/20 08:00 BP 158/106 H 04/19/20 08:00 Pulse Ox 94 04/19/20 08:00 Allergies Allergy/AdvReac Type Severity Reaction Status Date / Time No Known Allergies Allergy Verified 04/05/20 14:49 Home Medications Medication Instructions Recorded Confirmed Type albuterol sulfate [Ventolin HFA] 2 puff INHALATION QID PRN #8.5 gm 12/06/19 04/18/20 Rx cholecalciferol (vitamin D3) 1,250 50,000 unit PO WEEKLY #14 cap 01/04/20 04/18/20 Rx mcg (50,000 unit) capsule azelastine 137 mcg (0.1 %) nasal 1 spray NASAL Q12H #30 ml 03/20/20 04/18/20 Rx spray aerosol fluticasone propionate 50 1 spray NASAL Q12H #18.2 ml 03/20/20 04/18/20 Rx mcg/actuation nasal spray,suspension losartan 50 mg-hydrochlorothiazide 1 tablet PO DAILY #30 tablet 03/20/20 04/18/20 Rx 12.5 mg tablet rosuvastatin 5 mg tablet 5 mg PO DAILY #30 tablet 03/20/20 04/18/20 Rx fexofenadine [Children's Kacey 60 mg PO BID 03/23/20 04/18/20 History Allergy] calcitonin (salmon) 200 1 spray INTRANASAL (ALT) DAILY 04/02/20 04/18/20 Rx unit/actuation nasal spray #3.7 ml hydralazine 10 mg tablet 10 mg PO TID #90 tablet 04/02/20 04/18/20 Rx prednisone 10 mg tablet See Rx Instructions PO DAILY 20 04/02/20 04/18/20 Rx Days #50 tablet Laboratory Tests 04/18/20 04/18/20 04/18/20 08:49 08:49 08:49 WBC 14.0 K/mm3 H K/mm3 (4.5-10.0) RBC 5.04 M/mm3 M/mm3 (4.2-5.4) Hgb 14.3 g/dL g/dL (12.0-15.0) Hct 42.8 % % (37.0-47.0) MCV 84.9 fl fl (80-100) MCH 28.4 pg pg (26-34) MCHC 33.4 g/dl g/dl (32-36) RDW 14.1 % % (11.5-14.5) Plt Count 308 k/mm3 k/mm3 (150-375) MPV 9.8 fl fl (7.4-10.4) Immature Gran % (Auto) 0.6 % H % (0-0.5) Neut % (Auto) 76.1 % H % (45.5-73.1) Lymph % (Auto) 15.1 % L % (18.3-44.2) [place] % (Auto) 7.1 % % (2.6-8.5) Eos % (Auto) 0.8 % % (0-4.4) Baso % (Auto) 0.3 % % (0.2-1.2) Lymph # (Auto) 2.12 K/mm3 K/mm3 (0.9-3.2) [place] # (Auto) 1.0 K/mm3 H K/mm3 (0.1-0.6) Eos # (Auto) 0.1 K/mm3 K/mm3 (0-0.3) Baso # (Auto) 0.0 K/mm3 K/mm3 (0.0-0.1) Abs Immat Gran (auto) 0.08 K/mm3 H K/mm3 (0.00-0.031) Absolute Neuts (auto) 10.7 K/mm3 H K/mm3 (1.3-6.7) Absolute Nucleated RBC 0.0 K/mm3 K/mm3 (0.0-0.012) Nucleated RBC % 0.0 % % (0.0-0.2) PT 12.2 Seconds Seconds (11.1-14.7) INR 0.9 Sodium 129 mmol/L L mmol/L (137-145) Potassium 3.6 mmol/L mmol/L (3.4-5.0) Chloride 92 mmol/L L mmol/L (98-107) Carbon Dioxide 28 mmol/L mmol/L (22-30) BUN 9 mg/dL mg/dL (7-17) Creatinine 0.60 mg/dL L mg/dL (0.7-1.0) Estim Creat Clear Calc Not Reportable Estimated GFR > 60 (59 - ) Glucose 101 mg/dL mg/dL (65-105) Calcium 9.7 mg/dL mg/dL (8.4-10.2) Patient hx anesthesia problems: none Family hx anesthesia problems: none [facility] Past Medical History Medical History (Updated 04/18/20 @ 09:57 by Marilia Lacey MD) Asthma Benign essential HTN COPD (chronic obstructive pulmonary disease) Dysphagia Esophageal cancer Mass of left submandibular region Mixed hyperlipidemia Second degree AV block Surgical History Surgical History (Reviewed 04/05/20 @
--- NOTE | 2020-04-19 09:18 | PM.CNGS ---
Assessment and Plan Assessment and plan (1) Esophageal cancer: Code(s): C15.9 - Malignant neoplasm of esophagus, unspecified Status: Acute Assessment and Plan: on need neoadjuvant chemo radiation per Oncology, we will place right-sided VAD for chemo access (2) Second degree AV block: Code(s): I44.1 - Atrioventricular block, second degree Status: Acute Assessment and Plan: left subclavian pacemaker placed (3) COPD (chronic obstructive pulmonary disease): Code(s): J44.9 - Chronic obstructive pulmonary disease, unspecified Status: Acute Assessment and Plan: management per primary team (4) Benign essential HTN: Code(s): I10 - Essential (primary) hypertension Status: Acute Assessment and Plan: management per primary team History of Present Illness Consult details Consult date: 04/19/20 Reason for consult: central line Requesting physician: Marilia Lacey MD Narrative: The patient is a 74-year-old female with multiple medical issues that presents for placement venous access device. The patient was admitted yesterday and pacemaker placed in the left subclavian vein. The patient was recently diagnosed with distal esophageal cancer with noted positive lymph node in the left. The patient is going to chemotherapy starting in the next weeks. The patient denies any history of any previous central venous catheterization. Review of Systems Constitutional: Constitutional: Denies anorexia, Denies chills, Reports fatigue, Denies headache(s), Reports lethargy, Denies malaise, Denies poor appetite, Reports weakness, Denies weight gain and Denies weight loss Eyes: Eyes: Reports no additional eye complaints and Denies loss of vision ENT: Reports Normal hearing present, Reports dysphagia, Denies headache(s), Denies hearing loss and Denies sore throat Cardiovascular: Cardiovascular: Denies chest pain, Denies syncope, Denies irregular heart rhythm, Denies leg edema, Denies palpitations and Denies dyspnea Respiratory: Respiratory: Denies cough and Denies dyspnea Gastrointestinal: Gastrointestinal: Denies abdominal pain, Denies bloating, Denies change in bowel habits, Denies change in stool character, Denies constipation, Denies dysphagia, Denies heartburn, Denies diarrhea, Denies nausea and Denies vomiting Genitourinary: Genitourinary: Denies urinary frequency, Denies dysuria and Denies urinary urgency Musculoskeletal: Musculoskeletal: Denies myalgias, Denies arthralgias and Denies muscle cramps Integumentary/Breasts: Skin/Breast: Denies non-healing lesions and Denies rash Neurologic: Denies syncope, Denies headache(s) and Denies loss of vision Psychiatric: Psychiatric: Reports no additional psychiatric complaints Endocrine: Endocrine: Denies change in body appearance and Denies fatigue Hematologic/Lymphatic: Hematologic/Lymphatic: Denies easy bleeding, Denies easy bruising and Denies lymphadenopathy PMFSH Past Medical History Medical History Asthma Benign essential HTN COPD (chronic obstructive pulmonary disease) Dysphagia Esophageal cancer Mass of left submandibular region Mixed hyperlipidemia Second degree AV block Surgical History Surgical History Hx of hysterectomy Family History Family History Father Cerebrovascular accident Sibling Multiple sclerosis Heart disease Mother Hypertension Colon polyp Skin cancer Social History Social History Social History: , lives with daughter in [place]. Smoking packs per day: 1 Smoking cigarettes per day: 20.0 Years smoked: 30 Smoking pack-years: 30.00 Smoking status: Former smoker Tobacco type: cigarettes Second hand tobacco smoke exposure: No Alcohol intake: ne
[2020-04-19] MEDS: ceFAZolin 2 GM/D5W 50 ML 2 GM/50 ML BAG IVPB (09:32)
[2020-04-19] MEDS: BUPIVACAINE/EPINEPHRINE 0.5% 30 ML VIAL 10 ML INFILTRATE (10:01)
[2020-04-19] MEDS: HEPARIN SODIUM 5,000 UNITS/ML VIAL 5000 UNITS IRRIGATION (10:02)
[2020-04-19] MEDS: HEPARIN SODIUM, PORCINE 10,000 UNITS/10 ML VIAL 3000 UNITS IV PUSH (10:02)
[2020-04-19] MEDS: LACTATED RINGERS 1,000 ML 30 ML IV CONT (10:29)
--- NOTE | 2020-04-19 10:41 | PM.PROC ---
Procedure Note - Detailed Date of procedure: 04/19/20 Pre-op diagnosis: pacemaker incertion esophageal cancer Post-op diagnosis: same Procedure performed: placement of right subclavian venous access device under fluroscopic guidance Description of procedure: Patient was brought into the operating room and placed in the supine position. After adequate induction of mac anesthesia, the patient was prepped and draped in normal sterile fashion. Time-out was then done to verify the patient's identity, as well as the procedure being performed. I began by making a small incision in the right chest, I then gained access into the right subclavian vein with an 18 gauge needle. I then placed the guidewire into the vein and confirmed placement via fluoroscopic guidance. I then locally anesthetized the area in the right chest. I then enlarged the incision around the guidewire including making a subcutaneous pocket inferiorly to allow placement of the port itself. I then placed a dilating sheath over the guidewire into the right subclavian vein via sterile Seldinger technique. This was once again done and confirmed via fluoroscopic guidance. I then removed the dilator and the guidewire, now just leaving the sheath in the vein. I then fed the previously flushed catheter into the right subclavian vein under fluoroscopic guidance. At approximately 22 cm, the catheter was noted to be near the atrial caval junction. I then peeled away the sheath, now just leaving the catheter in the vein. I then was able to easily draw and flush from the catheter. The catheter was cut to fit and attached to the port itself. The port was placed into the previously made subcutaneous pocket and sutured in with 0 Ethibond suture. Final fluoroscopic view showed the termination of the catheter at the atrial caval junction with a nice smooth curvature back to the port itself. I was able to gain access to the port with a Colvin needle and was able to easily draw and flush from the port. I then flushed 4 cc of a final heparin flush into the port. The incision was closed with 3 0 Vicryl suture in the subcutaneous tissue and the skin was closed with 4 O Monocryl subcuticular suture. Dermabond was then placed on wound. The patient tolerated the procedure well and will be sent to the recovery room in stable condition. Implants: R SCV VAD Anesthesia: MAC and local Surgeon: Cherrie Ellis MD Estimated blood loss (mL): 10 Drains: No Packing: No Pathology: none sent Complications: No immediate complications Condition: stable Disposition: PACU Findings: placement of R SCV VAD via 1st stick
--- NOTE | 2020-04-19 10:53 | PC.NURSE ---
0835-pt taken to surgery. No distress noted.
[2020-04-19] MEDS: FLUTICASONE PROPIONATE 0.05% NA SPR 16 GM BTL (*BKC) 1 SPRAY NASAL (12:15)
[2020-04-19] MEDS: CALCITONIN NASAL 200 UNITS/SPRAY 3.7 ML BOTTLE 1 SPRAY NASAL (12:15)
[2020-04-19] MEDS: AZELASTINE HCL NASAL 0.1% 137 MCG/SPR 30 ML BTL 1 SPRAY NASAL (12:15)
[2020-04-19] MEDS: hydroCHLOROthiazide 12.5 MG CAPSULE PO (12:17)
[2020-04-19] MEDS: LOSARTAN POTASSIUM 50 MG TABLET PO (12:18)
[2020-04-19] MEDS: LORATADINE 10 MG TABLET PO (12:18)
--- NOTE | 2020-04-19 12:59 | PM.DS ---
DS: Admitting Diagnosis Admitting Diagnosis Admitting Diagnosis: Atrioventricular block, second degree DS: Discharge Diagnosis Discharge Diagnosis (1) Second degree AV block: Code(s): I44.1 - Atrioventricular block, second degree Status: Acute Assessment and Plan: Symptomatic second-degree AV block in a patient with normal left ventricular function. Recommend implantation of a permanent dual-chamber pacemaker. Biotronik dual-chamber pacemaker implanted by Dr Lacey on 04/18/2020. She was monitored overnight. Vital signs were stable. Pacemaker is functioning normally on day of discharge. (2) COPD (chronic obstructive pulmonary disease): Code(s): J44.9 - Chronic obstructive pulmonary disease, unspecified Status: Acute Assessment and Plan: She does have a productive cough. Stable. (3) Esophageal cancer: Code(s): C15.9 - Malignant neoplasm of esophagus, unspecified Status: Acute Assessment and Plan: Port placed in the right subclavian vein by 04/19/2020. She is to call her oncologist that she now has her port. (4) Hyponatremia: Code(s): E87.1 - Hypo-osmolality and hyponatremia Status: Acute Assessment and Plan: Stable DS: Summary Hospital Course Reason for hospitalization: Symptomatic second-degree AV block type to Hospital Course: 74-year-old female seen in the office by Dr. Noel for symptomatic second-degree AV block type 2. Pacemaker implantation was recommended. Biotronik dual-chamber pacemaker was placed by Dr Lacey on 04/18/2020. She was monitored overnight. L signs were stable. Pacemaker is functioning normally on day of discharge. She also had her right subclavian port placed prior to discharge for her chemotherapy. Chest x-rays were reviewed by Dr Lacey personally with no pneumothorax. Left subclavian Aquacel dressing was intact with no drainage or swelling. There was some ecchymosis above the dressing which was present after implantation with no change. She was discharged home in stable and pain-free condition. Status at Discharge Functional status at discharge: independent ambulation Overall status at discharge: patient is back to baseline Time Spent with Patient Time attestation: Total time spent providing and/or coordinating discharge services: 25 minutes Time spent: Less than 30 minutes Exam Const: General: comfortable and no acute distress; No confusion Orientation/consciousness: No confusion HENMT: Mouth: Yes moist mucous membranes Other: Missing some teeth Eyes: EOM: EOMs intact bilaterally Neck: Neck: supple Other: Enlarged lymph node left neck Chest: Other: Left subclavian Aquacel dressing intact. No drainage. No redness or swelling. Ecchymoses above the dressing is unchanged from yesterday's assessment. Right subclavian Port-A-Cath with ecchymosis. Edges well approximated. Resp: Effort & Inspection: normal respiratory effort Auscultation: clear to auscultation bilaterally Other: Somewhat productive cough Cardio: Rate: regular rate and bradycardic Rhythm: regular rhythm GI: Inspection: non-distended Skin: General skin exam: normal color (Left prepectoral area is free of infection) Neuro: General: No confusion Speech: normal speech Motor exam (neuro): Normal motor muscle tone present throughout Extrem: General: no pedal edema Psych: Mental Status: mental status grossly normal Affect: normal affect Discharge Plan Discharge Patient Disposition: Home, Self-Care Discharge Instructions: ACTIVITY: No driving until you are seen in the office for your incision check. No lifting, pushing or pulling more than 5 pounds with left arm for 1 MONTH No lifting left arm above shoulder height for 1 MONTH Wear immobilizer only if you are unable to remembe
--- NOTE | 2020-04-19 13:59 | PC.NURSE ---
1345-pt given D/C orders and instructions. Questions answered and verbalized understanding. AOx4. Pt has Aquacel Ag dressing in place over pacemaker incision. No evidence of bleeding or hematoma noted. Small bruising above the dressing but has not changed since arriving back to the floor from the procedure. Right chest has newly implanted port-a-cath. Some bruising around new port. PIV removed intact. Pt taken via wheelchair to waiting vehicle. No distress noted or verbalized at time of departure.
== END 2020-04-19 13:45 | disposition home or self-care (01) ==
LOC: ANHCATHLAB 08:29 → ANHCPC 12:59
PROVIDERS: Surgery; PCP Family Medicine; Visit Provider Internal Medicine Cardiovascular Disease
PROC: 0JH606Z Insertion of Pacemaker, Dual Chamber into Chest Subcutaneous Tissue and Fascia, Open Approach (ICD-10-PCS; CPT 33208; principal; 2020-04-18 10:00)
PROC: (CPT 36561; principal; 2020-04-19 10:00)
DX: I44.1 Atrioventricular block, second degree (principal); R00.1 Bradycardia, unspecified; C15.9 Malignant neoplasm of esophagus, unspecified; R59.0 Localized enlarged lymph nodes; I11.9 Hypertensive heart disease without heart failure; J44.9 Chronic obstructive pulmonary disease, unspecified; E78.2 Mixed hyperlipidemia; J98.11 Atelectasis; Z87.891 Personal history of nicotine dependence; Z79.52 Long term (current) use of systemic steroids; Z79.899 Other long term (current) drug therapy
CPT/HCPCS: 36561; 33208; 36415; 71045; 71046; 77001; 80048; 85025; 85610; 93005; A9270; C1779; C1785; C1788; J0690; J1644; J1741; J2250; J2704; J3010; J7030; J7040; J7120

== ENCOUNTER 2020-04-23 15:44 | Outpatient (CLI) | payer MEDICARE, SELFPAY ==
--- NOTE | ~2020-04-23 | US_ITS ---
EXAMINATION: US carotid duplex BI DATE: 04/23/2020 16:38 INDICATION: Bilateral carotid bruit TECHNIQUE: Grayscale, color Doppler, and pulsed Doppler images of the cervical carotid arteries were obtained. The degree of vessel stenosis is placed in one of the following categories: normal, <50%, 5 0-69%, >=70% but less than near-occlusion, near-occlusion, or total occlusion. Note that percent sten osis relative to normal distal artery lumen diameter is indirectly measured from velocity measurement s as described by Rafael, et al. Radiology 2003; 229:340-346. Notes: Normal: Peak systolic velocity <125 centimeters/sec and no plaque <50%. Peak systolic velocity <125 ( EDV <40; ICA/CCA PSV ratio <2.0; used these factors only a tandem lesions or low cardiac output or co ntralateral disease) 50-69 %: PSV 125-230 (EDV 40-100; ratio 2-4) >= 70% but less than near occlusion: PSV greater than 230 (EDV > 100; ratio> 4.0) Near Occlusion: PSV that is variable; markedly narrowed lumen Occlusion: Absent flow on color/spectral Doppler and no lumen on dunbar scale. COMPARISON: None. FINDINGS: RIGHT: The right common carotid artery (CCA) peak systolic velocity (PSV) is 110 cm/s. The right internal ca rotid artery (ICA) PSV is 149 cm/s. The right ICA end-diastolic velocity (EDV) is 22 cm/s. The right ICA/CCA PSV ratio is 1.4. The external carotid artery (ECA) PSV is 279 cm/s. There is antegrade flow in the right vertebral artery. LEFT: The left CCA PSV is 103 cm/s. The left ICA PSV is 198 cm/s. The left ICA EDV is 39 cm/s. The left ICA /CCA PSV ratio is 1.9. The ECA PSV is 331 cm/s. There is antegrade flow in the left vertebral artery . There are multiple hypoechoic left neck masses which are incompletely visualized. IMPRESSION: 1. 50-69% stenosis in the right internal carotid artery by sonographic criteria. 2. 50-69% stenosis in the left internal carotid artery by sonographic criteria. 3: Multiple hypoechoic left neck masses. Cannot exclude primary malignancy or metastatic disease. Re commend correlation with contrast-enhanced CT neck. Reviewed, dictated and finalized at location A. IMPRESSION: 1. 50-69% stenosis in the right internal carotid artery by sonographic criteria . 2. 50-69% stenosis in the left internal carotid artery by sonographic criteria. 3: Multiple hypoechoic left neck masses. Cannot exclude primary malignancy or metastatic disease. Recommend correlation with contrast-enhanced CT neck.
== END 2020-04-23 15:45 | disposition home or self-care (01) ==
PROVIDERS: PCP Family Medicine; Visit Provider Internal Medicine Cardiovascular Disease
DX: R09.89 Other specified symptoms and signs involving the circulatory and respiratory systems (principal); I65.23 Occlusion and stenosis of bilateral carotid arteries; R93.89 Abnormal findings on diagnostic imaging of other specified body structures
CPT/HCPCS: 93880

== ENCOUNTER 2020-05-17 11:54 | Outpatient (CLI) | payer MEDICARE, SELFPAY ==
--- NOTE | ~2020-05-17 | XR_ITS ---
EXAMINATION: XR chest 2V EXAM DATE: 05/17/2020 12:15 INDICATION: Cough, abnormal lung sounds. TECHNIQUE: Frontal and lateral projections of the chest obtained and reviewed. Comparison is made to prior examination from 05/19/2020. FINDINGS: There is moderate chronic hyperinflation. There is a dual lead pacemaker/AICD seen with le ads projecting over the expected locations of the right atrial appendage and right ventricle. Right-s ided Chemo-Port. No confluent consolidation, pneumothorax or pleural effusion suspected. The bones ar e osteopenic. There are bony degenerative changes. There is aortic arteriosclerosis. IMPRESSION: 1. Hyperinflation. 2. No acute cardiopulmonary findings. Reviewed, dictated and finalized at location A.
== END 2020-05-17 11:55 | disposition home or self-care (01) ==
LOC: ANHIMG 12:00
PROVIDERS: PCP Family Medicine; Visit Provider Internal Medicine Hematology & Oncology
DX: R05 Cough (principal); R91.8 Other nonspecific abnormal finding of lung field
CPT/HCPCS: 71046

== ENCOUNTER 2020-05-18 11:28 | Outpatient (CLI) | payer MEDICARE, SELFPAY ==
[2020-05-18 12:40] LABS: Sodium Urine Random 8 meq/L
== END 2020-05-18 11:29 | disposition home or self-care (01) ==
LOC: ANHLAB 11:30
PROVIDERS: PCP Physician Assistant; Visit Provider Physician Assistant
DX: E87.1 Hypo-osmolality and hyponatremia (principal)
CPT/HCPCS: 84300

== ENCOUNTER 2020-06-08 11:21 | Outpatient (CLI) | payer MEDICARE, SELFPAY ==
[2020-06-08 15:21] LABS: Add Urine Microscopic? YES; Appearance Urine Turbid (Clear); Bacteria Urine Trace /hpf; Bilirubin Urine Negative (Negative); Blood Urine 1+ (Negative); Color Urine Yellow (Yellow); Glucose Urine UA Negative (Negative); Ketones Urine 1+ mg/dL (Negative); Leukocyte Esterase Ur 3+ LEU/UL (NEGATIVE); Nitrate Urine Negative (Negative); Protein Urine 2+ mg/dL (Negative); RBC Urine 21-50 /hpf (0-2); Specific Grav Ur 1.012 (1.001-1.035); WBC Urine >75 /hpf (0-3)
== END 2020-06-08 11:22 | disposition home or self-care (01) ==
LOC: ANHLAB 11:24
PROVIDERS: PCP Physician Assistant; Visit Provider Radiology Radiation Oncology
DX: R30.0 Dysuria (principal)
CPT/HCPCS: 81001

== ENCOUNTER 2020-06-15 01:18 | Outpatient (CLI) | payer MEDICARE, SELFPAY ==
[2020-06-15 19:18] LABS: SARS-CoV-2 RNA PCR Negative
== END 2020-06-15 01:19 | disposition home or self-care (01) ==
LOC: ANHCOVIDDT 01:19
PROVIDERS: PCP Family Medicine; Visit Provider Internal Medicine Gastroenterology
DX: Z01.812 Encounter for preprocedural laboratory examination (principal); Z20.828 Contact with and (suspected) exposure to other viral communicable diseases
CPT/HCPCS: 87635; C9803; U0003

== ENCOUNTER 2020-06-18 01:42 | Day surgery (SDC) | payer MEDICARE, SELFPAY ==
[2020-06-13 12:37] VITALS: BMI 21.2
--- NOTE | 2020-06-18 09:54 | WPDGICN ---
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 She has had increasing difficulty swallowing while receiving radiation and chemotherapy. Plan is to proceed with EGD and possible PEG tube placement today if at all possible. (3) COPD (chronic obstructive pulmonary disease): Code(s): J44.9 - Chronic obstructive pulmonary disease, unspecified Status: Acute GI Consult Note Consult date/time: 06/18/20 09:54 HPI: Vipul Abbasi is a 75 year old female seen in evaluation at the request of Dr Elkins. Also followed by Dr. madelyn bland. Patient has recent diagnosis of esophageal cancer and head and neck cancer. She has been undergoing chemotherapy in conjunction with radiation therapy. Patient has had increasing difficulty swallowing. She presents today for possible endoscopic PEG tube placement. Patient denies abdominal pain. She has been using viscous lidocaine to swallow pills better but reports minimal discomfort at this time. Her family history is noncontributory. Patient has lost some degree of weight. She denies any bleeding. Review of Systems Review of Systems: All systems reviewed & are unremarkable except as noted in HPI and below PMFSH Past Medical History Medical History Asthma Benign essential HTN COPD (chronic obstructive pulmonary disease) Dysphagia Esophageal cancer Mass of left submandibular region Mixed hyperlipidemia Second degree AV block Surgical History Surgical History Hx of hysterectomy Family History Family History Father Cerebrovascular accident Sibling Multiple sclerosis Heart disease Mother Hypertension Colon polyp Skin cancer Social History Social History Social History: , lives with daughter in [place]. Smoking packs per day: 1 Smoking cigarettes per day: 20.0 Years smoked: 40 Smoking pack-years: 40.00 Smoking status: Former smoker Tobacco type: cigarettes Second hand tobacco smoke exposure: No Smoking end date: 04/01/00 Alcohol intake: never Substance use: never Substance use type: does not use Gender identity (if verbalized by the patient): Female Spiritual care concerns: No Meds Home Medications and Allergies Home Medications Medication Instructions Recorded Confirmed Type albuterol sulfate [Ventolin HFA] 2 puff INHALATION QID PRN #8.5 gm 12/06/19 06/13/20 Rx cholecalciferol (vitamin D3) 1,250 50,000 unit PO WEEKLY #14 cap 01/04/20 06/13/20 Rx mcg (50,000 unit) capsule azelastine 137 mcg (0.1 %) nasal 1 spray NASAL Q12H #30 ml 03/20/20 06/13/20 Rx spray aerosol fluticasone propionate 50 1 spray NASAL Q12H #18.2 ml 03/20/20 06/13/20 Rx mcg/actuation nasal spray,suspension losartan 50 mg-hydrochlorothiazide 1 tablet PO DAILY #30 tablet 03/20/20 06/13/20 Rx 12.5 mg tablet calcitonin (salmon) 200 1 spray INTRANASAL (ALT) DAILY 04/02/20 06/13/20 Rx unit/actuation nasal spray #3.7 ml hydralazine 10 mg tablet 10 mg PO TID #90 tablet 04/02/20 06/13/20 Rx furosemide 20 mg tablet 20 mg PO QAM #30 tablet 05/18/20 06/13/20 Rx losartan 50 mg tablet 50 mg PO DAILY #30 tablet 05/18/20 06/13/20 Rx Magic Mouthwash (Dr. Wilkerson) 5 - 10 ml PO QID #120 ml 06/04/20 06/13/20 Rx nystatin 4 - 6 ml PO QID #200 ml 06/04/20 06/13/20 Rx ciprofloxacin HCl [Cipro] 500 mg PO Q12H #14 tablet 06/08/20 06/13/20 Rx rosuvastatin 2.5 mg PO DAILY 06/12/20 06/13/20 History amlodipine 2.5 mg PO DAILY 0
--- NOTE | 2020-06-18 10:00 | WPDANESEPPF ---
Anes - Initial Pre Proc Eval Procedure: Operation Date: 06/18/20 10:30 Proposed Procedures p Percutaneous Endoscopic Gastrostomy - Alexis Hudson MD Date/Time: 06/18/20 10:00 Surgeon: Alexis Hudson MD Pre Op Diagnosis: esophageal CA Patient Data Age: 75 Gender: F Height: 4 ft 6 in Weight: 39.925 kg Allergies Allergy/AdvReac Type Severity Reaction Status Date / Time No Known Allergies Allergy Verified 04/19/20 09:11 Home Medications Medication Instructions Recorded Confirmed Type albuterol sulfate [Ventolin HFA] 2 puff INHALATION QID PRN #8.5 gm 12/06/19 06/13/20 Rx cholecalciferol (vitamin D3) 1,250 50,000 unit PO WEEKLY #14 cap 01/04/20 06/13/20 Rx mcg (50,000 unit) capsule azelastine 137 mcg (0.1 %) nasal 1 spray NASAL Q12H #30 ml 03/20/20 06/13/20 Rx spray aerosol fluticasone propionate 50 1 spray NASAL Q12H #18.2 ml 03/20/20 06/13/20 Rx mcg/actuation nasal spray,suspension losartan 50 mg-hydrochlorothiazide 1 tablet PO DAILY #30 tablet 03/20/20 06/13/20 Rx 12.5 mg tablet calcitonin (salmon) 200 1 spray INTRANASAL (ALT) DAILY 04/02/20 06/13/20 Rx unit/actuation nasal spray #3.7 ml hydralazine 10 mg tablet 10 mg PO TID #90 tablet 04/02/20 06/13/20 Rx furosemide 20 mg tablet 20 mg PO QAM #30 tablet 05/18/20 06/13/20 Rx losartan 50 mg tablet 50 mg PO DAILY #30 tablet 05/18/20 06/13/20 Rx Magic Mouthwash (Dr. Wilkerson) 5 - 10 ml PO QID #120 ml 06/04/20 06/13/20 Rx nystatin 4 - 6 ml PO QID #200 ml 06/04/20 06/13/20 Rx ciprofloxacin HCl [Cipro] 500 mg PO Q12H #14 tablet 06/08/20 06/13/20 Rx rosuvastatin 2.5 mg PO DAILY 06/12/20 06/13/20 History amlodipine 2.5 mg PO DAILY 06/13/20 06/13/20 History potassium chloride 20 meq PO DAILY 06/13/20 06/13/20 History Patient hx anesthesia problems: none Family hx anesthesia problems: none PMFSH Past Medical History Medical History Asthma Benign essential HTN COPD (chronic obstructive pulmonary disease) Dysphagia Esophageal cancer Mass of left submandibular region Mixed hyperlipidemia Second degree AV block Surgical History Surgical History Hx of hysterectomy Family History Family History Father Cerebrovascular accident Sibling Multiple sclerosis Heart disease Mother Hypertension Colon polyp Skin cancer Social History Social History Social History: , lives with daughter in [place]. Smoking packs per day: 1 Smoking cigarettes per day: 20.0 Years smoked: 40 Smoking pack-years: 40.00 Smoking status: Former smoker Tobacco type: cigarettes Second hand tobacco smoke exposure: No Smoking end date: 04/01/00 Alcohol intake: never Substance use: never Substance use type: does not use Gender identity (if verbalized by the patient): Female Spiritual care concerns: No Anes - Eval Final PreProcedure Day of Procedure 06/18/20 10:00 Patient weight: cachectic Heart: regular rate and rhythm Lungs: clear to auscultation Airway: Mallampati scale class III Neurological: alert and oriented Last oral intake: >/= 8 hours ASA classification: IV Emergent: no Anesthetic plan: proceed Anesthesia type and monitoring: general GIVS and standard monitoring Informed Consent: The patient's anesthetic plan and its attendant risks and benefits were discussed with the patient/family/POA. Questions were solicited and answers provided to the satisfaction of the patient/family/POA.
[2020-06-18] MEDS: LACTATED RINGERS 1,000 ML 150 ML IV CONT (10:06)
--- NOTE | 2020-06-18 10:06 | SUR.PREOP ---
Call to Home Health. Spoke with Lisseth. Patient information faxed to [phone] per Lisseth.
[2020-06-18 10:14] VITALS: BP 142/75; PULSE 87; RESP 18; TEMP 36.9; O2SAT 95
[2020-06-18 10:54] VITALS: BP 144/80; PULSE 95; RESP 25; O2SAT 97
[2020-06-18 11:04] VITALS: BP 148/73; PULSE 94; RESP 21; O2SAT 100
[2020-06-18 11:14] VITALS: BP 168/86; PULSE 94; RESP 22; O2SAT 100
--- NOTE | 2020-06-18 11:20 | SUR.PHASEII ---
pt assessed on arrival, co pain level 6, dr stover ordered 25 mcg fentanyl, peg site clear with dry 4 x 4. daughter at bedside. post op teaching done with daughter, supplies of betadine and gauze given. home health notified.
[2020-06-18 11:24] VITALS: BP 144/78; PULSE 91; RESP 14; O2SAT 94
[2020-06-18 11:32] VITALS: BP 146/77; PULSE 93; RESP 16; O2SAT 94
[2020-06-18] MEDS: HEPARIN SOD FLUSH 500 UNITS/5 ML SYRINGE IV PUSH (11:48)
--- NOTE | 2020-06-18 11:50 | SUR.PHASEII ---
Information has been faxed to [facility] [phone]. Including face sheet and Tube feeding script.
== END 2020-06-18 12:15 | disposition home or self-care (01) ==
PROVIDERS: PCP Family Medicine; Visit Provider Internal Medicine Gastroenterology
PROC: 0DH63UZ Insertion of Feeding Device into Stomach, Percutaneous Approach (ICD-10-PCS; CPT 43246; principal; 2020-06-18 10:30)
DX: R13.19 Other dysphagia (principal); C15.4 Malignant neoplasm of middle third of esophagus; C76.0 Malignant neoplasm of head, face and neck; I10 Essential (primary) hypertension; J44.9 Chronic obstructive pulmonary disease, unspecified; E78.2 Mixed hyperlipidemia; I44.1 Atrioventricular block, second degree; Z95.0 Presence of cardiac pacemaker; Z79.51 Long term (current) use of inhaled steroids; Z79.899 Other long term (current) drug therapy; Z87.891 Personal history of nicotine dependence
CPT/HCPCS: 43246; J2704; J3010; J7120

== ENCOUNTER 2020-07-23 00:17 | Emergency (ER) | payer MEDICARE, SELFPAY ==
--- NOTE | ~2020-07-23 | CT_ITS ---
EXAMINATION: CT abdomen pelvis w con INDICATION: Diffuse abdominal pain, history of esophageal cancer TECHNIQUE: Computed tomographic images of the abdomen and pelvis were obtained after the administrati on of 100 cc of Omnipaque 350 intravenous contrast. The dose-length product (DLP) was 182.72 mGy-cm. Automated exposure control and iterative reconstruction technique were employed. COMPARISON: 04/17/2020 FINDINGS: There is moderate emphysema of the visualized lung bases. Minimal airspace opacities are pr esent in the lower lobes, right greater than left. The heart size is normal. A percutaneous gastrosto my is in expected position There is portal venous gas in the liver. There is hypoenhancement of the s hort segment of small bowel in the left lower quadrant. There is pneumatosis of the affected segment with gas in the associated mesentery. No free intraperitoneal gas is identified. There is a 10 mm cys t of the left hepatic lobe. The spleen, pancreas, kidneys, and adrenal glands are normal. A stone is present in the nondistended gallbladder. There is calcified atherosclerosis of the aorta and many of the other arteries. No pathologically enlarged abdominal or pelvic lymph nodes are identified. There are no dilated loops of bowel. The appendix is normal. There is a short segment of wall thickening in volving the proximal ascending colon. There is a mild compression deformity of L5 vertebral body. Com pression fractures of the T9 and T10 vertebral bodies are also noted. IMPRESSION: 1. Ischemic bowel involving a short segment of small bowel in the right lower quadrant with gas in th e associated mesentery and portal venous gas. These findings were discussed with Dr. Ole son DO in the Emergency Department at 0205 hours on 07/23/2020 by the [facility] [facility]iologist. 2. Mild wall thickening of the proximal ascending colon which could reflect ischemia versus incomplet e distention. 3. Cholelithiasis without evidence of cholecystitis. Reviewed, dictated and finalized at location A. IMPRESSION: 1. Ischemic bowel involving a short segment of small bowel in the right lower q uadrant with gas in the associated mesentery and portal venous gas. These findi ngs were discussed with Dr. Ole Bradley DO in the Emergency Department a t 0205 hours on 07/23/2020 by the [employer] [facility]iologist. 2. Mild wall thickening of the proximal ascending colon which could reflect isc hemia versus incomplete distention. 3. Cholelithiasis without evidence of cholecystitis.
[2020-07-23 00:24] VITALS: BP 148/83; PULSE 113; RESP 18; TEMP 36.1; O2SAT 100
--- NOTE | 2020-07-23 00:45 | ED.ABDPAIN ---
HPI - Abdominal Pain General Chief Complaint: Abdominal Pain Stated Complaint: abd pain Time Seen by Provider: 07/23/20 00:21 Source: RN notes reviewed History of Present Illness HPI narrative: Patient presents emergency department from home for abdominal pain. Patient developed abdominal pain this evening diffuse throughout the abdomen. Patient states she did attempt to take Tylenol for the pain approximately 1030 this evening. She has any fevers or chills chest pain shortness of breath nausea vomiting diarrhea or any other symptoms. Patient had a PEG tube placed approximately 1 month ago and has a history of esophageal cancer currently being treated with radiation. Related Data Home Medications Medication Instructions Recorded Confirmed amlodipine 2.5 mg PO DAILY 06/13/20 07/16/20 potassium chloride 20 meq PO DAILY 06/13/20 07/16/20 Allergies Allergy/AdvReac Type Severity Reaction Status Date / Time Cipro Allergy Unknown Rash Uncoded 07/05/20 09:59 Review of Systems Review of Systems: Narrative: Gen.: Denies fevers or chills ENT: Denies congestion Respiratory: Denies shortness of breath or cough CV: Denies chest pain or palpitations GI: See HPI denies burning, urgency, frequency or hematuria Musculoskeletal: Denies back pain or muscle pain Neuro: Denies numbness, tingling, weakness or focal weakness Skin: Denies rash Except as documented, all other systems reviewed and negative [facility] Past Medical History Medical History Asthma Benign essential HTN COPD (chronic obstructive pulmonary disease) Dysphagia Esophageal cancer Mass of left submandibular region Mixed hyperlipidemia Second degree AV block Social History Social History Social History: , lives with daughter in [place]. Smoking packs per day: 1 Smoking cigarettes per day: 20.0 Years smoked: 40 Smoking pack-years: 40.00 Smoking status: Former smoker Tobacco type: cigarettes Second hand tobacco smoke exposure: No Smoking end date: 04/01/00 Alcohol intake: never Substance use: never Substance use type: does not use Gender identity (if verbalized by the patient): Female Spiritual care concerns: No Exam Narrative: Exam Narrative: APPEARANCE: No acute distress, nontoxic, resting in bed HEENT: Normocephalic, atraumatic, OMM RESPIRATORY: No respiratory distress, clear to auscultation bilaterally with no rhonchi wheezing or rales CARDIOVASCULAR: RRR s murmur ABDOMINAL: Soft, nondistended, diffusely tender to palpation, no rebound or guarding, PEG tube present in the left abdomen with no straining erythema or signs of infection Rectal: No hemorrhoids or fissures, small amount of dark brown stool that is Hemoccult positive MUSCULOSKELETAl: Moves all extremities. No clubbing, cyanosis or edema. NEURO: Awake and alert. Following commands, speech normal, no focal deficits SKIN:: Warm, dry. Normal Color PSYCHIATRIC: Normal affect/mood Course Course Emergency Course: Called discussed with Dr. Porter for general surgery presentation work-up discussed CT scans. At this time he recommends transfer of the patient to facility for possible vascular intervention Discussed with patient need for transfer request [facility] at this time she is followed by Dr. masters and Dr. Wilkerson Called and discussed with [facility] transfer line and discussed with [employer] Stephy. After initial conversation she reached out to her general surgeon Dr. Jones at this time the patient has accepted and they request transfer from ER to ER. Dr. Jones will be the accepting physician. That he requested start Zosyn at this time. We discussed the patient's heme positive stool and decreased anemia and platelet count hold any anticoagulation Called and discussed for possible air transport however secondary to the weather not flying at this
[2020-07-23 01:10] LABS: Basophils Percent Auto 0.6 % (0.2-1.2); Eosinophils Percent Auto 0.2 % (0-4.4); Hematocrit 21.3 % (37.0-47.0); Hemoglobin 7.1 g/dL (12.0-15.0); Immature Granulocyte Absolute 0.08 K/mm3 (0.00-0.031); Immature Granulocyte Percent A 1.3 % (0-0.5); Lymphocytes Percent Auto 3.2 % (18.3-44.2); Mean Corpuscular HGB Conc 33.3 g/dl (32-36); Mean Corpuscular Volume 89.9 fl (80-100); Mean Platelet Volume 10.6 fl (7.4-10.4); Monocytes Absolute Auto 0.9 K/mm3 (0.1-0.6); Monocytes Percent Auto 13.9 % (2.6-8.5); Neutrophils Absolute Auto 5.1 K/mm3 (1.3-6.7); Neutrophils Percent Auto 80.8 % (45.5-73.1); Platelet Count Result 111 k/mm3 (150-375); Red Blood Count 2.37 M/mm3 (4.2-5.4); Red Cell Distribution Width 22.4 % (11.5-14.5); White Blood Count 6.3 K/mm3 (4.5-10.0)
[2020-07-23 01:18] VITALS: BP 148/81; PULSE 111; RESP 16; O2SAT 100
[2020-07-23 01:22] LABS: Alanine Aminotransferase 18 U/L (4-35); Albumin Level 3.5 g/dL (3.5-5.1); Alkaline Phosphatase 65 U/L (38-126); Anion Gap 6 mmol/L (8-16); Aspartate Amino Transferase 24 U/L (14-36); Bilirubin,Total 0.5 mg/dL (0.2-1.3); Blood Urea Nitrogen 11 mg/dL (7-17); Calcium 9.4 mg/dL (8.4-10.2); Carbon Dioxide 26 mmol/L (22-30); Chloride 98 mmol/L (98-107); Estimated Glomerular Filt Rate > 60; Glucose 133 mg/dL (65-105); Lipase 92 U/L (23-300); Partial Thromboplastin Time 28.1 SECONDS (22.3-36.8); Potassium 4.5 mmol/L (3.4-5.0); Sodium 130 mmol/L (137-145)
[2020-07-23] MEDS: MORPHINE SULFATE (*CRX) 2 MG/ML INJ IV PUSH ×2 (01:24→02:50)
[2020-07-23 01:35] LABS: Anisocytosis 1+ (NORMAL); Hypochromasia 1+ (NORMAL)
[2020-07-23 01:45] LABS: Add Urine Microscopic? YES; Amorphous Sediment Urine Few; Appearance Urine Cloudy (Clear); Bilirubin Urine Negative (Negative); Blood Urine Negative (Negative); Color Urine Yellow (Yellow); Glucose Urine UA Negative (Negative); Ketones Urine Trace mg/dL (Negative); Leukocyte Esterase Ur Negative LEU/UL (Negative); Mucus Urine Rare /lpf; Nitrate Urine Negative (Negative); Protein Urine Negative (Negative); RBC Urine 0-2 /hpf (0-2); Specific Grav Ur 1.014 (1.001-1.035); WBC Urine 0-3 /hpf
[2020-07-23] MEDS: SODIUM CHLORIDE 0.9% IV 1,000 ML 999 ML IV CONT (02:41)
[2020-07-23 02:51] VITALS: BP 163/75; PULSE 114; RESP 20; O2SAT 97
[2020-07-23 03:13] LABS: Lactic Acid Reflex 0.8 mmol/L (0.7-2.1)
--- NOTE | 2020-07-23 03:16 | PC.NURSE ---
0304 called [facility] to request transport. ETA [phone] called [facility] to request transport. - Declined due to low ceiling
[2020-07-23 03:36] VITALS: BP 127/75; PULSE 112; RESP 18; TEMP 36.7; O2SAT 94
== END 2020-07-23 03:47 | disposition short-term general hospital (02) ==
PROVIDERS: Emergency Provider Emergency Medicine; PCP Family Medicine
DX: K55.019 Acute (reversible) ischemia of small intestine, extent unspecified (principal); D64.9 Anemia, unspecified; C15.9 Malignant neoplasm of esophagus, unspecified; D69.6 Thrombocytopenia, unspecified; J45.909 Unspecified asthma, uncomplicated; I10 Essential (primary) hypertension; J44.9 Chronic obstructive pulmonary disease, unspecified; E78.2 Mixed hyperlipidemia; Z87.891 Personal history of nicotine dependence
CPT/HCPCS: 36415; 74177; 80053; 81001; 83605; 83690; 85025; 85610; 85730; 86850; 86900; 86901; 96365; 96375; 96376; 99285; J2270; J2543; J7030; Q9967

== ENCOUNTER → 2021-06-08 01:12 | Outpatient (CLI) | payer MEDICARE, SELFPAY ==
[2021-06-08 17:52] LABS: SARS-CoV-2 RNA PCR Positive
== END ==
PROVIDERS: PCP Family Medicine; Visit Provider Internal Medicine Gastroenterology
DX: U07.1 COVID-19 (principal)
CPT/HCPCS: C9803; U0003; U0005

== ENCOUNTER 2021-06-25 01:24 | Day surgery (SDC) | payer OTHER, MEDICARE, SELFPAY ==
--- NOTE | 2021-06-10 10:13 | PC.NURSE ---
Patient tested positive for covid 06/08/2021, spoke with daughters Urmila and Le regarding this. Pt ran fever 100.4 starting may.29 and started having dark brown drainage around g-tube saturated gauze and was on pants on the -May. hospice nurse pract. saw pt in home on the noted redness at g-tube and brownish-green drainage on gauze. Started pt on cefalexin. On the morning show newscast producer noted sao2 at 83% and put pt on nc at 2L. which increased sao2 above 90%. Daughter states drainage around g-tube is only on the gauze now and light brown. She is giving her 4 smaller feedings vs. 3 larger feedings and has decreased the water a small amt. She is tolerating the feedings and medications via the g-tube. I have discussed this with nurse manager inpatient and Dr. Hudson. Dr. Hudson desires that with the positve covid and added O2 we will wait until the to replace g-tube. If pt becomes unable to tolerate the tube feedings or has an increase in symptoms to go to the emergency room. I will follow up with pat mid-week the for the appt on the . This was all discussed with the family and they agree to this plan. They also have received the call from the [facility].
--- NOTE | 2021-06-20 11:31 | PC.NURSE ---
SPOKE WITH DAUGHTERS, NO CHANGE SINCE LAST SPOKE- PT WAS PLACED ON O2 NC AT 2L DURING COVID POSITIVE BUT NOT OTHER ISSUES, GTUBE SITE IS STILL OOZING BUT CONSIDERABLY LESS, CHANGING DRESSING 2 TIMES A DAY AND NOT ALOT ON DRESSING EACH TIME. SPOKE WITH DR. CADE AND HE AGREES TO CONTINUE NOW WITH SEEING PATIENT AND EVALUATING GTUBE FOR REMOVAL AND REPLACEMENT.
--- NOTE | ~2021-06-25 | XR_ITS ---
EXAMINATION: XR G tube replacement w image INDICATION: G-tube replacement TECHNIQUE: Supine view of the abdomen is obtained. Water-soluble contrast is injected through the gas trostomy COMPARISON: None available FINDINGS: The gastrostomy tube is in expected position. The bowel gas pattern is unremarkable. Calcif ied atherosclerosis is noted. IMPRESSION: 1. Gastrostomy tube in expected position. Reviewed, dictated and finalized at location A.
[2021-06-25 11:50] VITALS: BP 165/73; PULSE 79; RESP 16; TEMP 35.9; O2SAT 98
--- NOTE | 2021-06-25 12:58 | SUR.PREOP ---
PEG tube was removed at bedside. New 20F PEG replacement tube placed- REG [id number] GTIN [id number] Xray obtained per Dr Hudson- patient okay for discharge. Instructions given. Questions answered. No acute distress noted.
--- NOTE | 2021-06-25 13:29 | WPDGICN ---
Assessment and Plan Assessment and plan (1) PEG (percutaneous endoscopic gastrostomy) adjustment/replacement/removal: Code(s): Z43.1 - Encounter for attention to gastrostomy Status: Acute Assessment and Plan: Peg tube appears to have deteriorated. Will need replacement. She may have had infection in the as this is improved with empiric antibiotics she no longer requires antibiotics. (2) Head and neck cancer: Code(s): C76.0 - Malignant neoplasm of head, face and neck Status: Acute (3) Esophageal cancer: Code(s): C15.9 - Malignant neoplasm of esophagus, unspecified Status: Acute (4) COPD (chronic obstructive pulmonary disease): Code(s): J44.9 - Chronic obstructive pulmonary disease, unspecified Status: Acute GI Consult Note Consult date/time: 06/25/21 13:29 HPI: Vipul Abbasi is a 76 year old female I am asked to see because of malfunctioning G-tube. Patient has a history of a throat mass and midesophageal cancer diagnosed 1 year ago PEG tube was placed approximately 1 year ago. Patient has received chemo and radiation therapy. Recently entered hospice. G-tube is noted to have some erythema adjacent to as well as leakage. She was placed empirically on antibiotics. And plan to have G-tube replacement. Two weeks ago was found to be COVID positive and this was treated there for G-tube replacement was deferred. In the interval time there has been much less drainage from the PEG tube site. Patient presents today for ultimate change of the PEG tube. Her family history noncontributory. She is very hard of hearing. Accompanied by her daughter. Review of Systems Review of Systems: ROS unobtainable: Yes unobtainable due to mental status PMFSH Past Medical History Medical History (Updated 06/25/21 @ 13:32 by Alexis Hudson MD) Asthma Benign essential HTN COPD (chronic obstructive pulmonary disease) Dysphagia Esophageal cancer Mass of left submandibular region Mixed hyperlipidemia Second degree AV block Surgical History Surgical History Hx of hysterectomy Family History Family History Father Cerebrovascular accident Sibling Multiple sclerosis Heart disease Mother Hypertension Colon polyp Skin cancer Social History Social History Social History: , lives with daughter in [place]. Smoking packs per day: 1 Smoking cigarettes per day: 20.0 Years smoked: 40 Smoking pack-years: 40.00 Smoking status: Former smoker Tobacco type: cigarettes Second hand tobacco smoke exposure: No Smoking end date: 04/01/00 Alcohol intake: never Substance use: never Substance use type: does not use Living arrangements: with family Gender identity (if verbalized by the patient): Female Sexual Orientation (if Verbalized by the Patient): Straight or Heterosexual Spiritual care concerns: No Meds Home Medications and Allergies Home Medications Medication Instructions Recorded Confirmed Type fluticasone propionate 50 1 spray NASAL Q12H #18.2 ml 03/20/20 06/07/21 Rx mcg/actuation nasal spray,suspension hydralazine 10 mg tablet 10 mg PO TID #90 tablet 04/02/20 06/07/21 Rx albuterol sulfate 90 mcg/actuation 2 puff INHALATION QID PRN #8.5 gm 06/25/20 06/07/21 Rx aerosol inhaler ipratropium 0.5 mg-albuterol 3 mg 3 ml INHALATION Q6H PRN #180 ml 11/02/20 06/07/21 Rx (2.5 mg base)/3 mL nebulization soln azelastine 137 mcg (0.1 %) nasal 1 spray NASAL Q12H #30 ml 02/20/21 06/07/21 Rx spray aerosol YAMEL Elbow Strap 06/07/21 06/07/21 History acetaminophen 650 mg PO Q6H PRN 06/07/21 06/07/21 History cephalexin 500 mg PO BID 06/07/21 06/07/21 History hydrocodone-acetaminophen 5 ml PO PRN PRN 06/07/21 06/07/21 History ibuprofen 200 mg PO QID PRN 06/07/21 06/07/21 Hi
--- NOTE | 2021-06-25 13:32 | PM.OP ---
Procedure Note - Brief Procedure Note - Brief Date of procedure: 06/25/21 Pre-op diagnosis: malfunctioning g-tube Surgeon: Alexis Hudson MD Procedure is G-tube replacement. Informed consent is obtained from patient's daughter and the patient the risks benefits alternatives are discussed agree to prior to starting the procedure. Old PEG tube is removed with traction removal. 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 Gastric contents are aspirated from the gastric body. Appearing to be in good position. Follow-up Gastrografin x-ray through the G-tube documents G-tube to be in good position. Plan is for local care to the PEG site. Resume tube feedings as previously ordered.
== END 2021-06-25 12:41 | disposition home or self-care (01) ==
PROVIDERS: PCP Family Medicine; Visit Provider Internal Medicine Gastroenterology
PROC: 0DH63UZ Insertion of Feeding Device into Stomach, Percutaneous Approach (ICD-10-PCS; CPT 43246; principal; 2021-06-25 12:30)
DX: K94.23 Gastrostomy malfunction (principal); C76.0 Malignant neoplasm of head, face and neck; C15.9 Malignant neoplasm of esophagus, unspecified; J44.1 Chronic obstructive pulmonary disease with (acute) exacerbation; J45.909 Unspecified asthma, uncomplicated; I10 Essential (primary) hypertension; J44.9 Chronic obstructive pulmonary disease, unspecified; E78.2 Mixed hyperlipidemia; I44.1 Atrioventricular block, second degree; Z87.891 Personal history of nicotine dependence; Z79.51 Long term (current) use of inhaled steroids
CPT/HCPCS: 43246; 49450; 99211; G0463

== ENCOUNTER 2021-12-08 12:12 | Emergency (ER) | payer OTHER, MEDICARE, SELFPAY ==
--- NOTE | ~2021-12-08 | XR_ITS ---
EXAMINATION: XR G tube evaluation w imaging DATE: 12/08/2021 13:56 INDICATION: Gastrostomy tube placement. TECHNIQUE: A supine view of the abdomen was obtained. COMPARISON: CT abdomen and pelvis 07/15/2020 FINDINGS: There are no dilated loops of bowel. There is a gastrostomy tube in the body of the stomach . There is contrast in the tube and in the stomach. There is a small sliding hiatal hernia. Pacer wir es are noted in the right atrium and right ventricle. There are airspace opacities in the lower lung zones, right worse than left. IMPRESSION: 1. Gastrostomy tube in expected position. 2. Small sliding hiatal hernia. 3. Airspace opacities in the lower lung zones, right worse than left, consistent with atelectasis/sca rring versus pneumonia. Reviewed, dictated and finalized at location A. HEN HELPER IMPRESSION: 1. Gastrostomy tube in expected position. 2. Small sliding hiatal hernia. 3. Airspace opacities in the lower lung zones, right worse than left, consisten t with atelectasis/scarring versus pneumonia.
[2021-12-08 12:23] VITALS: BP 136/78; PULSE 92; RESP 18; TEMP 36.9; O2SAT 100
--- NOTE | 2021-12-08 13:10 | ED.GENADULT ---
HPI - General Adult General Chief complaint: Unspecified Stated complaint: gtube problem Time Seen by Provider: 12/08/21 13:10 Source: family Mode of arrival: EMS Limitations: other History of Present Illness HPI narrative: Patient is a 76-year-old female brought in due to G-tube dysfunction. According to daughter the G-tube is clogged and is not flush to skin and some redness around the area. No other complaints. Patient denies any abdominal pain, nausea, vomiting, fever or chills. Patient is able to take oral intake but fluids only. Related Data Home Medications Medication Instructions Recorded Confirmed YAMEL Elbow Strap 06/07/21 06/07/21 acetaminophen 650 mg PO Q6H PRN 06/07/21 06/07/21 cephalexin 500 mg PO BID 06/07/21 06/07/21 hydrocodone-acetaminophen 5 ml PO PRN PRN 06/07/21 06/07/21 ibuprofen 200 mg PO QID PRN 06/07/21 06/07/21 nystatin [Nystop] 1 TOPICAL BID PRN 06/07/21 Allergies Allergy/AdvReac Type Severity Reaction Status Date / Time ciprofloxacin Allergy Intermediate Hives Verified 12/08/21 12:29 Review of Systems Review of Systems: All systems reviewed & are unremarkable except as noted in HPI and below Constitutional: Constitutional: Denies body ache(s), Denies chills, Denies excessive sweating, Denies fatigue, Denies fever(s), Denies headache(s), Denies lethargy, Denies malaise, Denies weakness and Denies weight loss Eyes: Eyes: Denies blurry vision, Denies change in vision and Denies loss of vision ENT: Denies dizziness, Denies ear discharge, Denies headache(s), Denies lip swelling, Denies epistaxis, Denies nasal congestion, Denies neck pain, Denies throat swelling and Denies tongue swelling Cardiovascular: Cardiovascular: Denies chest pain, Denies chest pain at rest, Denies chest pain with activity, Denies diaphoresis, Denies rapid heart rate, Denies edema, Denies irregular heart rhythm, Denies lightheadedness, Denies palpitations, Denies dyspnea and Denies dyspnea on exertion Respiratory: Respiratory: Denies chest congestion, Denies cough, Denies hemoptysis, Denies dyspnea and Denies dyspnea on exertion Gastrointestinal: Gastrointestinal: Denies abdominal pain, Denies melena, Denies hematochezia, Denies diarrhea, Denies nausea, Denies vomiting and Denies hematemesis Musculoskeletal: Musculoskeletal: Denies abnormal gait, Denies deformity, Denies joint swelling, Denies limited range of motion, Denies neck pain and Denies numbness Neurologic: Denies Abnormal speech present, Denies abnormal gait, Denies confusion, Denies dizziness, Denies headache(s), Denies focal weakness, Denies loss of vision, Denies numbness, Denies Other visual disturbances, Denies Sensory deficit (Neuro) and Denies weakness Psychiatric: Psychiatric: Denies confusion, Denies depression, Denies auditory hallucinations, Denies homicidal ideation and Denies suicidal ideation Endocrine: Endocrine: Denies cold intolerance, Denies excessive sweating, Denies fatigue, Denies heat intolerance and Denies palpitations Hematologic/Lymphatic: Hematologic/Lymphatic: Denies easy bleeding and Denies easy bruising Allergic/Immunologic: Allergic/Immunologic: Denies lip swelling, Denies throat swelling and Denies tongue swelling PMFSH Past Medical History Medical History (Updated 12/08/21 @ 14:54 by Ole Damon MD) Asthma Benign essential HTN COPD (chronic obstructive pulmonary disease) Dysphagia Esophageal cancer Mass of left submandibular region Mixed hyperlipidemia Second degree AV block Surgical History Surgical History Hx of hysterectomy Family History Family History Father Cerebrovascular accident Sibling Multiple sclerosis Heart disease Mother Hypertension Colon polyp Skin cancer Social History Social History Social History: , lives with daughter i
--- NOTE | 2021-12-08 14:11 | PC.NURSE ---
This rn flushed peg tube ith 50 CC water. flushes without complication. Also flushed to gravity without complication
[2021-12-08] MEDS: SILVER SULFADIAZINE 1% CR 400 GM JAR (*BKC) 1 APPLIC TOPICAL (15:14)
== END 2021-12-08 15:19 | disposition home or self-care (01) ==
PROVIDERS: Emergency Provider Emergency Medicine; PCP Family Medicine
DX: K94.23 Gastrostomy malfunction (principal); I10 Essential (primary) hypertension; J44.9 Chronic obstructive pulmonary disease, unspecified; E78.2 Mixed hyperlipidemia; Z85.01 Personal history of malignant neoplasm of esophagus; Z87.891 Personal history of nicotine dependence; K44.9 Diaphragmatic hernia without obstruction or gangrene; R91.8 Other nonspecific abnormal finding of lung field
CPT/HCPCS: 49465; 99284; A9270

== ENCOUNTER 2021-12-09 14:34 | Emergency (ER) | payer OTHER, MEDICARE, SELFPAY ==
[2021-12-09 14:41] VITALS: BP 131/80; PULSE 90; RESP 18; TEMP 36.8; O2SAT 100
--- NOTE | 2021-12-09 15:00 | ED.GENADULT ---
HPI - General Adult General Chief complaint: Unspecified Stated complaint: G-tube came out Time Seen by Provider: 12/09/21 14:49 Source: patient, family and RN notes reviewed Mode of arrival: ambulatory Limitations: no limitations History of Present Illness HPI narrative: Patient is 76-year-old female who presents for G-tube having fallen out just prior to arrival was sleeping woke with the G-tube out it was found that the balloon was underinflated she had had this placed in the emergency department yesterday on arrival she denies any pain or discomfort nausea or vomiting. Related Data Home Medications Medication Instructions Recorded Confirmed YAMEL Elbow Strap 06/07/21 06/07/21 acetaminophen 650 mg PO Q6H PRN 06/07/21 06/07/21 cephalexin 500 mg PO BID 06/07/21 06/07/21 hydrocodone-acetaminophen 5 ml PO PRN PRN 06/07/21 06/07/21 ibuprofen 200 mg PO QID PRN 06/07/21 06/07/21 nystatin [Nystop] 1 TOPICAL BID PRN 06/07/21 Allergies Allergy/AdvReac Type Severity Reaction Status Date / Time ciprofloxacin Allergy Intermediate Hives Verified 12/09/21 14:44 Review of Systems Review of Systems: All systems reviewed & are unremarkable except as noted in HPI and below PMFSH Past Medical History Medical History (Updated 12/09/21 @ 15:11 by Jh Tran PA-C) Asthma Benign essential HTN COPD (chronic obstructive pulmonary disease) Dysphagia Esophageal cancer Mass of left submandibular region Mixed hyperlipidemia Second degree AV block Surgical History Surgical History Hx of hysterectomy Family History Family History Father Cerebrovascular accident Sibling Multiple sclerosis Heart disease Mother Hypertension Colon polyp Skin cancer Social History Social History Social History: , lives with daughter in [place]. Smoking packs per day: 1 Smoking cigarettes per day: 20.0 Years smoked: 40 Smoking pack-years: 40.00 Smoking status: Former smoker Tobacco type: cigarettes Second hand tobacco smoke exposure: No Smoking end date: 04/01/00 Alcohol intake: never Substance use: never Substance use type: does not use Gender identity (if verbalized by the patient): Female Sexual Orientation (if Verbalized by the Patient): Straight or Heterosexual Spiritual care concerns: No Exam Narrative: GENERAL: Well-appearing, well-nourished, and in no acute distress. HEAD: Normocephalic, atraumatic. EYES: PERRLA and EOMI. ENT: Nares clear, no rhinorrhea or epistaxis. Mucous membranes moist. CHEST: Clear to auscultation. No respiratory distress. No wheezes rales or rhonchi HEART: Regular rate and rhythm. No murmur heard. Normal peripheral pulses. ABDOMEN: Soft, nontender, nondistended EXTREMITIES: Normal range of motion. No edema. SKIN: Warm, dry, no rash. NEURO: No focal deficits. Alert and oriented x3. Cranial nerves II through XII grossly intact PSYCH: Normal mood and affect. Course Course Emergency Course: Patient's G-tube was easily placed back the balloon was underinflated once inflated had normal inflation there was no drainage noted the balloon only had 1 mL of saline and it was inflated to six as indicated on the bag. Patient had no pain with the G-tube after was replaced. She has slight discomfort with placing the G-tube back in. ABCs and vital signs intact stable they were provided with reasons to return Vital Signs Vital signs: Vital Signs Temperature 98.2 F 12/09/21 14:41 Pulse Rate 90 12/09/21 14:41 Respiratory Rate 18 12/09/21 14:41 Blood Pressure 131/80 12/09/21 14:41 Pulse Oximetry 100 12/09/21 14:41 Temperature 98.2 F 12/09/21 14:41 Pulse Rate 90 12/09/21 14:41 Respiratory Rate 18 12/09/21 14:41 Blood Pressure 131/80 12/09/21 14:41 Pulse Oximetry 100 12/09/21
== END 2021-12-09 15:20 | disposition home or self-care (01) ==
PROVIDERS: Emergency Provider Emergency Medicine; PCP Family Medicine
DX: K94.23 Gastrostomy malfunction (principal); I10 Essential (primary) hypertension; J44.9 Chronic obstructive pulmonary disease, unspecified; Z85.01 Personal history of malignant neoplasm of esophagus; E78.2 Mixed hyperlipidemia; Z87.891 Personal history of nicotine dependence
CPT/HCPCS: 99281

== ENCOUNTER 2021-12-11 17:03 | Emergency (ER) | payer OTHER, MEDICARE, SELFPAY ==
--- NOTE | ~2021-12-11 | XR_ITS ---
EXAMINATION: XR G tube evaluation w imaging DATE: 12/11/2021 18:31 INDICATION: Confirm placement of a gastrojejunostomy tube. TECHNIQUE: 2 AP images of the abdomen and pelvis were obtained following injection of contrast materi al through the patient's percutaneous gastrostomy tube. COMPARISON: 12/08/2021 FINDINGS: Again seen is a extends gastrostomy tube with distal tip in the body of the stomach which is filled w ith gas and a small amount of injected contrast. There is some additional wall contrast material with in the distal colon likely related to the earlier gastrostomy tube check. No dilated loops of gas-jairo led bowel to suggest obstruction. IMPRESSION: 1. Percutaneous gastrostomy tube tip in the body of the stomach. Reviewed, dictated and finalized at location A. MANAGER
--- NOTE | ~2021-12-11 | XR_ITS ---
EXAMINATION: XR G tube replacement w image DATE: 12/11/2021 19:23 INDICATION: Gastrostomy tube replacement. TECHNIQUE: Supine AP view of the abdomen and pelvis was obtained. COMPARISON: 12/11/2021 at 6:25 PM FINDINGS: Again seen is a percutaneous gastrostomy tube with bulb is also injected contrast within the body of the stomach. The previously injected contrast is now seen more distally throughout the small bowel. T here is also some residual oral contrast from an earlier gastrostomy tube injection in the distal col on. No dilated loops of bowel to suggest obstruction. Chronic pleural parenchymal scarring at the [facility] right lower lung zone. Dual lead pacemaker seen with leads projecting over the expected location s of the right atrium and right ventricle. IMPRESSION: 1. Percutaneous gastrostomy tube tip in the body of the stomach. Reviewed, dictated and finalized at location A. AT[employer] SUPERVISOR
[2021-12-11 17:06] VITALS: BP 166/73; PULSE 85; RESP 16; TEMP 37; O2SAT 100
--- NOTE | 2021-12-11 18:24 | ED.GENADULT ---
HPI - General Adult General Chief complaint: Unspecified Stated complaint: feeding tube problems Time Seen by Provider: 12/11/21 17:59 History of Present Illness HPI narrative: 76-year-old female presented to emergency department for evaluation of a G-tube issue. Patient has had the G-tube come out multiple times this week. Family states that it was partially dislodged on Thursday but replaced. They also state that it is completely dislodged on Thursday and her O2 was replaced. Family has been in contact with GI and presented to the emerge department for evaluation. Related Data Home Medications Medication Instructions Recorded Confirmed YAMEL Elbow Strap 06/07/21 06/07/21 acetaminophen 650 mg PO Q6H PRN 06/07/21 06/07/21 cephalexin 500 mg PO BID 06/07/21 06/07/21 hydrocodone-acetaminophen 5 ml PO PRN PRN 06/07/21 06/07/21 ibuprofen 200 mg PO QID PRN 06/07/21 06/07/21 nystatin [Nystop] 1 TOPICAL BID PRN 06/07/21 Allergies Allergy/AdvReac Type Severity Reaction Status Date / Time ciprofloxacin Allergy Intermediate Hives Verified 12/09/21 14:44 Review of Systems Review of Systems: CONSTITUTIONAL: Denies fever, chills, or sweats. EYES: Denies visual changes, redness, or discharge. ENT: Denies rhinorrhea, congestion, sore throat, or otalgia. CARDIOVASCULAR: Denies chest pain, palpitations, or edema. RESPIRATORY: Denies cough or dyspnea. GASTROINTESTINAL: Some abdominal discomfort at the site of the G-tube GENITOURINARY: Denies dysuria or hematuria. SKIN: Denies rash or itching. MUSCULOSKELETAL: Denies back pain, joint pain, or myalgia. NEUROLOGIC: Denies headache, numbness, or weakness. PSYCHIATRIC: Denies anxiety or depression. [facility] Past Medical History Medical History (Updated 12/12/21 @ 00:00 by Eun Rodríguez) Asthma Benign essential HTN COPD (chronic obstructive pulmonary disease) Dysphagia Esophageal cancer Mass of left submandibular region Mixed hyperlipidemia Second degree AV block Surgical History Surgical History Hx of hysterectomy Family History Family History Father Cerebrovascular accident Sibling Multiple sclerosis Heart disease Mother Hypertension Colon polyp Skin cancer Social History Social History Social History: , lives with daughter in [place]. Smoking packs per day: 1 Smoking cigarettes per day: 20.0 Years smoked: 40 Smoking pack-years: 40.00 Smoking status: Former smoker Tobacco type: cigarettes Second hand tobacco smoke exposure: No Smoking end date: 04/01/00 Alcohol intake: never Substance use: never Substance use type: does not use Gender identity (if verbalized by the patient): Female Sexual Orientation (if Verbalized by the Patient): Straight or Heterosexual Spiritual care concerns: No Exam Narrative: APPEARANCE: Well appearing, no pain, no distress, well-nourished. HEAD: normocephalic, atraumatic.. RESPIRATORY: Airway patent, respirations nonlabored. Clear to auscultation bilaterally, no rales, rhonchi, wheezing. CARDIOVASCULAR: Regular rate and rhythm without murmurs rubs or gallops. ABDOMINAL: Soft, nontender, nondistended, normal bowel sounds. Normal erythema around the G-tube site, site is well-appearing. No tenderness to palpation MUSCULOSKELETAL: Moves all extremities. Strength/ROM intact, No edema, No calf tenderness. NEURO: Alert. Cranial nerves II through XII intact. Good gait. Good coordination SKIN: Warm, dry. Normal Color PSYCHIATRIC: Normal affect/mood. Course Consultations Consultation #1: Case was discussed with Dr Mckinley. Ultimately the G-tube was exchanged and x-ray did confirm placement. Both patient and daughter were comfortable with the plan for discharge and close follow-up. All questions and concerns were addressed. Patient was improved at t
--- NOTE | 2021-12-11 19:42 | PC.NURSE ---
Handoff received from Malika MANCIA. Patient lying comfortably in ED stretched. calm and cooperative with family at bedside. No complaints at this time. Pending repeat x-ray reading. Tolerated G tube replacement well.
[2021-12-11 20:21] VITALS: BP 145/66; PULSE 72; RESP 16; O2SAT 97
== END 2021-12-11 20:23 | disposition home or self-care (01) ==
PROVIDERS: Emergency Provider Emergency Medicine; PCP Family Medicine
DX: T85.528A Displacement of other gastrointestinal prosthetic devices, implants and grafts, initial encounter (principal); I10 Essential (primary) hypertension; J44.9 Chronic obstructive pulmonary disease, unspecified; E78.2 Mixed hyperlipidemia; Z85.01 Personal history of malignant neoplasm of esophagus
CPT/HCPCS: 43762; 49450; 49465; 99284